=== PATIENT | male | born 1955 | race Caucasian/White ===

== ENCOUNTER 2018-09-17 00:04 | Inpatient (IN) ==
[2018-09-17] MEDS ORDERED: Aspirin 81 MG TAB.CHEW PO ONE (00:41)
--- NOTE | 2018-09-17 00:44 | Emergency Department Note ---
Disposition Clinical Impression: NSTEMI (non-ST elevated myocardial infarction) Chest pain Qualifiers: Chest pain type: unspecified Qualified Code(s): R07.9 - Chest pain, unspecified Disposition: Admitted As Inpatient Condition: Good Time of Disposition: 02:09 Chest Pain HPI - General Chief Complaint: ED Chest Pain Stated Complaint: back pain wth arm pain/risa Time Seen by Provider: 09/17/18 00:21 Source: patient, family Mode of arrival: ambulatory Limitations: no limitations Vital Signs Reviewed: Yes Nursing Notes Reviewed: Yes - History of Present Illness HPI Narrative: 63-year-old male hypertensive, hyperlipidemic with family history of [place] arrives to the emergency department with complaint of back pain radiating to bilateral shoulders as well as some chest pain. Patient states this started roughly 2 weeks ago with stable anginal type patterns where it was worse with exercise. The patient states he would sit down and relax and it would go away. The patient states this progressed the point where now he is experiencing this pain was sitting still. The patient states his last pain was a few hours prior to arrival decided to come into the emergency department. The patient states he was resting comfortably in the couch when it occurred. He denies any associated shortness of breath, nausea, diaphoresis. The patient states he has had a previous cardiac catheter roughly 15 years ago but they were "unable to place a stent". Patient denies any hemoptysis, unilateral leg swelling, history of DVT or PE, recent surgeries or immobilizations. Patient denies any previous mention of aortic aneurysm on previous examination per his previous history. No other complaints noted at this time. The patient is lucid and answering questions verbally. Denies any other complaints. Severity scale (1-10): 0 - Related Data Allergies Allergy/AdvReac Type Severity Reaction Status Date / Time No Known Allergies Allergy Verified 09/17/18 00:19 All systems ED: reviewed and negative except as stated. Constitutional: Denies: fever, chills, weakness ENT ED: Denies: dysphagia Cardiovascular: Reports: chest pain, dyspnea on exertion. Denies: orthopnea, edema, syncope Respiratory: Denies: cough, dyspnea, sputum production Gastrointestinal: Denies: abdominal pain, nausea, vomiting Genitourinary: Denies: urgency, dysuria Musculoskeletal: Reports: back pain. Denies: neck pain, arthralgia, myalgia Integumentary: Denies: rash Neurological: Denies: headache Chest Pain PMH - Past Medical History Medical history: Reports: hyperlipidemia, hypertension, myocardial infarction Psychiatric history: Reports: no psych history Prior Cardiac Testing/Procedures: Cardiac Angiogram - Social History Smoking Status: Never smoker Alcohol use: Reports: none Drug use: Reports: none Physical Exam - General Limitations: no limitations General appearance: alert, in no apparent distress - Head Head exam: atraumatic, normocephalic, normal inspection - Eye Eye exam: Present: normal appearance, PERRL, EOMI - ENT ENT exam: normal exam, normal oropharynx, mucous membranes moist - Neck Neck exam: Present: normal inspection, full ROM, trachea midline - Chest Chest inspection: Present: normal inspection, symmetric chest wall rise - Respiratory Respiratory exam: Present: normal lung sounds bilaterally - Cardiovascular Cardiovascular exam: Present: regular rate, normal rhythm, normal heart sounds - Abdominal Exam Abdominal exam: Present: soft, Non-Tender. Absent: tenderness, distention, guarding, rebound, rigidity - Extremities Exam Extremities exam: Present: normal inspection, full ROM. Absent: tenderness, pedal edema - Neurological Exam Neurological exam: Present: alert, oriented X3 - Skin Skin exam: Present: warm, dry, intact, normal color Course Vital Signs Temperature 98.3 F 09/17/18 00:13 Pulse Rate 64 09/17/18 00:13 Respiratory Rate 16 09/17/18 00:13 Blood Pressure 137/96 09/17/18 00:13 O2 Sat by Pulse Oximetry 97 09/17/18 00:13 Temperature 98.3 F 09/17/18 00:13 Pulse Rate 60 09/17/18 00:49 Respiratory Rate 16 09/17/18 00:33 Blood Pressure 131/92 09/17/18 01:30 O2 Sat by Pulse Oximetry 97 09/17/18 00:52 Oxygen Delivery Oxygen Delivery Room Air Chest Pain - MDM Narrative Medical decision making narrative: Patient's workup in the emergency department demonstrates an elevated troponin consistent with an in STEMI. The patient has no EKG changes. Patient has no active chest pain at this time. We will admit the patient to the hospital for placing on a hep or drip. The patient states that he has had no black or bloody stools. The patient will be admitted to the hospital for further workup. Accepted by Dr. Yañez - Lab Data Lab results reviewed: Yes I reviewed the patient's lab results. Result diagrams: 09/17/18 00:30 09/17/18 00:30 Lab Results 09/17/18 09/17/18 09/17/18 Range/Units 00:30 00:30 00:30 WBC 8.3 (4.3-11.1) K/mcL RBC 4.96 (4.19-5.50) M/mcL Hgb 15.2 (12.9-16.9) g/dL Hct 44.5 (37.5-50.1) % MCV 89.7 (83.0-100.0) fL MCH 30.6 (28.0-33.3) pg MCHC 34.2 (31.6-35.5) g/dL RDW 11.9 (11.5-14.5) % Plt Count 262 (140-400) K/mcL MPV 10.6 (9.4-12.4) fL Immature Gran % 0.4 (0-4) % Seg Neutrophils % 64.9 % Lymphocytes % 24.1 % Monocytes % 7.3 % Eosinophils % 2.5 % Basophils % 0.8 % Neutrophils # 5.4 (1.6-8.9) K/mcL Lymphocytes # 2.0 (0.6-4.6) K/mcL Monocytes # 0.6 (0.0-1.3) K/mcL Eosinophils # 0.2 (0.0-0.6) K/mcL Basophils # 0.1 (0.0-0.2) K/mcL PT 11.0 (9.4-12.1) Seconds INR 1.0 APTT 32.0 (26.0-36.0) Seconds Sodium 139 (136-145) mEq/L Potassium 4.2 (3.5-5.1) mEq/L Chloride 105 (98-107) mEq/L Carbon Dioxide 27 (23-29) mEq/L BUN 20 (8-23) mg/dL Creatinine 1.10 (0.70-1.30) mg/dL Est GFR ( Amer) > 60 (> 60) Est GFR (Non-Af Amer) > 60 (> 60) BUN/Creatinine Ratio 18 (6-26) Glucose 155 H (70-105) mg/dL Calculated Osmolality 294 (280-300) Calcium 9.2 (8.6-10.3) mg/dL Troponin I 0.14 H* (< 0.04) ng/mL - Radiology Data Radiology results reviewed: Yes I reviewed the patient's radiology results. Chest X-Ray 09/17/18 00:41 IMPRESSION: Negative portable chest. D/ / Yemi Harris MD / Yemi Harris MD Interpreting Provider: Yemi Harris MD - EKG Data EKG attestation: Yes I reviewed and interpreted this EKG. EKG results narrative: Heart rate 66 beats for minute. Normal sinus rhythm. No ST elevation or ST depression noted. No acute changes noted.
[2018-09-17 00:52] LABS: Basophils # 0.1 K/mcL (0.0-0.2); Basophils % 0.8 %; Eosinophils # 0.2 K/mcL (0.0-0.6); Eosinophils % 2.5 %; Hematocrit 44.5 % (37.5-50.1); Hemoglobin 15.2 g/dL (12.9-16.9); Immature Granulocytes % 0.4 % (0-4); Lymphocytes % 24.1 %; Mean Corpuscular HGB Conc 34.2 g/dL (31.6-35.5); Mean Corpuscular Hemoglobin 30.6 pg (28.0-33.3); Mean Corpuscular Volume 89.7 fL (83.0-100.0); Mean Platelet Volume 10.6 fL (9.4-12.4); Monocytes # 0.6 K/mcL (0.0-1.3); Monocytes % 7.3 %; Neutrophils # 5.4 K/mcL (1.6-8.9); Platelet Count 262 K/mcL (140-400); Red Blood Count 4.96 M/mcL (4.19-5.50); Red Cell Distribution Width 11.9 % (11.5-14.5); Segmented Neutrophils % 64.9 %
[2018-09-17 01:15] LABS: BUN/Creatinine Ratio 18 (6-26); Blood Urea Nitrogen 20 mg/dL (8-23); Calcium 9.2 mg/dL (8.6-10.3); Carbon Dioxide 27 mEq/L (23-29); Chloride 105 mEq/L (98-107); Glucose 155 mg/dL (70-105); Osmolality,Calculated 294 (280-300); Potassium 4.2 mEq/L (3.5-5.1); Sodium 139 mEq/L (136-145); eGFR For Non-African Americans > 60 (> 60)
[2018-09-17 01:19] LABS: Troponin I 0.14 ng/mL (< 0.04)
[2018-09-17] MEDS ORDERED: *HR* Heparin 5,000 UNIT/ML VIAL IVP PRN ×2 (01:34)
[2018-09-17] MEDS ORDERED: *HR* Heparin 5,000 UNIT/ML VIAL IVP ONE (01:34)
--- NOTE | 2018-09-17 02:12 | Emergency Department Note ---
Disposition Clinical Impression: NSTEMI (non-ST elevated myocardial infarction) Chest pain Qualifiers: Chest pain type: unspecified Qualified Code(s): R07.9 - Chest pain, unspecified Disposition: Admitted As Inpatient Condition: Good General Adult HPI - General Chief complaint: ED Chest Pain Stated complaint: back pain wth arm pain/risa Time Seen by Provider: 09/17/18 00:21 Source: patient, family Mode of arrival: ambulatory Limitations: no limitations Nursing Notes Reviewed: Yes Vital Signs Reviewed: Yes - History of Present Illness Pain Scale: 0 - Related Data Allergies Allergy/AdvReac Type Severity Reaction Status Date / Time No Known Allergies Allergy Verified 09/17/18 00:19 Constitutional: Denies: fever, chills, weakness ENT ED: Denies: dysphagia Cardiovascular: Reports: chest pain, dyspnea on exertion. Denies: orthopnea, edema, syncope Respiratory: Denies: cough, dyspnea, sputum production Gastrointestinal: Denies: abdominal pain, nausea, vomiting Genitourinary: Denies: urgency, dysuria Musculoskeletal: Reports: back pain. Denies: neck pain, arthralgia, myalgia Integumentary: Denies: rash Neurological: Denies: headache Past Medical History - Past Medical History Medical history: Reports: hyperlipidemia, hypertension, myocardial infarction Psychiatric history: Reports: no psych history - Social History Smoking Status: Never smoker Smokeless Tobacco Status: No Alcohol use: Reports: none Drug use: Reports: none Physical Exam - General Limitations: no limitations General appearance: alert, in no apparent distress Course Vital Signs Temperature 98.3 F 09/17/18 00:13 Pulse Rate 64 09/17/18 00:13 Respiratory Rate 16 09/17/18 00:13 Blood Pressure 137/96 09/17/18 00:13 O2 Sat by Pulse Oximetry 97 09/17/18 00:13 Temperature 98.3 F 09/17/18 00:13 Pulse Rate 60 09/17/18 00:49 Respiratory Rate 16 09/17/18 00:33 Blood Pressure 131/92 09/17/18 01:30 O2 Sat by Pulse Oximetry 97 09/17/18 00:52 Oxygen Delivery Oxygen Delivery Room Air Medical Decision Making - Medical Records Medical records reviewed: Yes I reviewed the patient's medical records. - Lab Data Lab results reviewed: Yes I reviewed the patient's lab results. Result diagrams: 09/17/18 00:30 09/17/18 00:30 Lab Results 09/17/18 09/17/18 09/17/18 Range/Units 00:30 00:30 00:30 WBC 8.3 (4.3-11.1) K/mcL RBC 4.96 (4.19-5.50) M/mcL Hgb 15.2 (12.9-16.9) g/dL Hct 44.5 (37.5-50.1) % MCV 89.7 (83.0-100.0) fL MCH 30.6 (28.0-33.3) pg MCHC 34.2 (31.6-35.5) g/dL RDW 11.9 (11.5-14.5) % Plt Count 262 (140-400) K/mcL MPV 10.6 (9.4-12.4) fL Immature Gran % 0.4 (0-4) % Seg Neutrophils % 64.9 % Lymphocytes % 24.1 % Monocytes % 7.3 % Eosinophils % 2.5 % Basophils % 0.8 % Neutrophils # 5.4 (1.6-8.9) K/mcL Lymphocytes # 2.0 (0.6-4.6) K/mcL Monocytes # 0.6 (0.0-1.3) K/mcL Eosinophils # 0.2 (0.0-0.6) K/mcL Basophils # 0.1 (0.0-0.2) K/mcL PT 11.0 (9.4-12.1) Seconds INR 1.0 APTT 32.0 (26.0-36.0) Seconds Sodium 139 (136-145) mEq/L Potassium 4.2 (3.5-5.1) mEq/L Chloride 105 (98-107) mEq/L Carbon Dioxide 27 (23-29) mEq/L BUN 20 (8-23) mg/dL Creatinine 1.10 (0.70-1.30) mg/dL Est GFR ( Amer) > 60 (> 60) Est GFR (Non-Af Amer) > 60 (> 60) BUN/Creatinine Ratio 18 (6-26) Glucose 155 H (70-105) mg/dL Calculated Osmolality 294 (280-300) Calcium 9.2 (8.6-10.3) mg/dL Troponin I 0.14 H* (< 0.04) ng/mL - Radiology Data Radiology results reviewed: Yes I reviewed the patient's radiology results. Chest X-Ray 09/17/18 00:41 IMPRESSION: Negative portable chest. D/ / Yemi Harris MD / Yemi Harris MD Interpreting Provider: Yemi Harris MD - EKG Data EKG #1 EKG attestation: Yes I reviewed and interpreted this EKG. EKG results narrative: EKG shows a normal sinus rhythm with ventricular rate of 66. LDH. No acute ST segment elevation or depression. No arrhythmia or ectopy. Critical Care Time Critical Care Time: Yes Total Critical Care Time: 35 Attestation: Critical care performed: Time is exclusive of separately billable procedures. Time includes: direct patient care, patient reassessment, coordination of patient care, interpretation of data (laboratory data, radiology data, and respiratory data), review of [facility]'s medical records, medical consultation and documentation of patient care. Procedures included in critical care time: Procedures excluded from critical care time: Attestation Statement - Attestation Attestation: I, Juanpablo Mcknight MD, personally evaluated this patient and discussed their management with the resident physician. I reviewed the resident's note and agree with the documented findings, medical decision making, and plan of care. 63-year-old male presents to the emergency department with a complaint of having pain in the mid and upper back which radiates to both shoulders and down both arms. The pains started 6 days ago while he was doing some heavy exercise. Since then he has had intermittent similar pains associated with exertion. Last evening he had an episode of similar pain at rest and then tonight had another episode of pain at rest which seemed worse than the previous episodes. He denies any shortness of breath with the episodes. No palpitations. No diaphoresis. No nausea or vomiting. Denies any pain or discomfort at present. He states the pain does not radiate through to the anterior chest it is just in his back between his shoulders. On examination patient is a well-developed well-nourished well-appearing male in no acute distress. He is alert and oriented 3. There is no cyanosis or diaphoresis. Chest is nontender to palpation. Breath sounds are clear and equal bilaterally. Heart regular rate and rhythm. Abdomen soft and nontender with normal bowel sounds. EKG shows normal sinus rhythm with a ventricular rate is 66. No acute ischemic changes. Chest x-ray negative. Labs reviewed. Troponin 0.14. Patient received aspirin and was started on heparin drip. The hospitalist, Dr. Clark, was consulted and accepted admission of the claude ent.
[2018-09-17 02:13] LABS: Hemoglobin 15.3 g/dL (12.9-16.9); Mean Corpuscular Hemoglobin 30.5 pg (28.0-33.3); Mean Corpuscular Volume 89.8 fL (83.0-100.0); Mean Platelet Volume 10.3 fL (9.4-12.4); Platelet Count 267 K/mcL (140-400); Red Blood Count 5.01 M/mcL (4.19-5.50); Red Cell Distribution Width 11.9 % (11.5-14.5)
[2018-09-17 02:21] LABS: Heparin anti-factor XA UFH 0.03 IU/mL (0.30-0.70); Prothrombin Time 11.2 Seconds (9.4-12.1)
[2018-09-17] MEDS: Heparin 25,000 UNIT/500 ML D5W 25,000 UNIT/500 ML BAG IVC SCH (02:50)
[2018-09-17] MEDS ORDERED: Nitroglycerin 0.4 MG TAB.SUBL SL PRN (03:05)
[2018-09-17] MEDS ORDERED: Naloxone 0.4 MG/ML INJ IVP PRN (03:05)
--- NOTE | 2018-09-17 03:14 | Internal Med History&Physical ---
Date of Encounter: 09/17/18 Time of Encounter: 03:14 Internal Medicine - H&P: HPI Chief complaint: Back pain History of present illness: Mr. Myers is a 63 year old male T with a past medical history of hypertension, hyperlipidemia and history of [place] who presents to the ED with a chief complaint of bilateral shoulder pain. Patient states that 2 weeks ago while exercising he developed what he described as pain radiating across his back near the shoulders; he described the pain as dull and aching. Pain resolved with rest at the time. This happened on 2 occasions while exercising. Patient states he exercises 6 times a week for approximately an hour and has been doing so for years. He states he does some form of Jazzercise. The patient states this progressed the point where now he is experiencing this pain while sitting still. The patient states his last pain was a few hours prior to arrival and therefore decided to come into the emergency department for further evaluation. He patient states he has had a previous cardiac catheter roughly 15 years ago but they were "unable to place a stent". He states that at the time he was having chest pain with radiation to his left arm, very different from his current presentation. Patient has never smoked; does not drink but has a strong family history of heart disease in both his mother and father. On initial assessment patient was afebrile and hemodynamically stable. Initial troponin of 0.14. Chest x-ray was unremarkable and showed no evidence of widened mediastinum. Patient was started on a heparin drip and given loading dose of aspirin. Past Med Surg Social Fam HX - Past Medical History Medical history: hyperlipidemia, hypertension, myocardial infarction Psychiatric history: no psych history - Past Surgical History Additional surgical history: CARDIAC CATH-NO STENTS - Social History Smoking Status: Never smoker Smokeless Tobacco Status: No Alcohol use: none Drug use: none Internal Medicine - H&P: Meds Allergy/AdvReac Type Severity Reaction Status Date / Time No Known Allergies Allergy Verified 09/17/18 00:19 All Systems PM: A 10-system review of systems was performed and is negative for pertinent findings except as documented above in the HPI. - Constitutional Constitutional: no chills, no fever(s), no night sweats - EENT Eyes: no change in vision, no discharge, no pain, no photophobia Ears: no ear discharge, no ear pain, no tinnitus Nose, mouth and throat: no dysphagia, no nasal discharge, no neck pain, no sore throat - Cardiovascular Cardiovascular ROS IM: no chest pain, no diaphoresis, no dyspnea, no lightheadedness, no palpitations, no syncope - Respiratory Respiratory: no cough, no dyspnea, no wheezing, no excessive phlegm production - Gastrointestinal Gastrointestinal: no abdominal pain, no diarrhea, no hematemesis, no hematochezia, no melena, no nausea, no vomiting - Musculoskeletal Musculoskeletal ROS IM: no numbness, no tingling - Integumentary Integumentary IM: no rash, no unusual bruising - Neurological Neurological ROS: no confusion, no convulsions, no focal weakness, no numbness, no tingling, no tremor(s) - Hematologic/Lymphatic Hematologic/Lymphatic: no easy bruising - Constitutional Vitals: Temp Pulse Resp BP Pulse Ox 98.3 F 60 16 132/94 96 09/17/18 00:13 09/17/18 02:56 09/17/18 02:56 09/17/18 02:56 09/17/18 02:56 Exam: General: Alert and oriented 3 lying in bed in no acute distress Skin:Normal color, no rash, no lesions. HEENT:EOM, pupils equal, round and reactive. Cardiovascular:Normal S1 & S2, no rubs, murmurs or gallops. No JVD. Pulse regular. Lungs:Normal breath sounds, no wheezes or crackles. Abdomen:Soft, non-tender, no rigidity. Extremities:No deformity, no edema or tenderness, no joint swelling or clubbing. Neurological:Normal cognition and motor skills. Pulses:Carotid and radial pulses normal +2. Rest of the physical exam is non contributory Internal Med - H&P Results - Labs CBC & Chem 7: 09/17/18 02:03 09/17/18 00:30 Labs: Short CBC 09/17/18 09/17/18 Range/Units 00:30 02:03 WBC 8.3 9.6 (4.3-11.1) K/mcL Hgb 15.2 15.3 (12.9-16.9) g/dL Hct 44.5 45.0 (37.5-50.1) % Plt Count 262 267 (140-400) K/mcL Neutrophils # 5.4 (1.6-8.9) K/mcL BMP 09/17/18 00:30 Sodium 139 Potassium 4.2 Chloride 105 Carbon Dioxide 27 BUN 20 Creatinine 1.10 Glucose 155 H Calcium 9.2 Cardiac Enzymes 09/17/18 Range/Units 00:30 Troponin I 0.14 H* (< 0.04) ng/mL - Impressions ITS Impressions Chest X-Ray 09/17/18 00:41 IMPRESSION: Negative portable chest. D/ / Yemi Harris MD / Yemi Harris MD Interpreting Provider: Yemi Harris MD - Assessment and plan (1) NSTEMI (non-ST elevated myocardial infarction) Current Visit: Yes Status: Acute Assessment and plan: 63-year-old male with a past medical history significant for [place] presents with atypical chest pain described as pain radiating across the back shoulders initially aggravated with exertion, specifically exercise, and relieved with rest; now occurring at rest. Initial EKG was normal but was found to have an elevated troponin of 0.14. Low suspicion for aortic dissection given description and no evidence of widened mediastinum on chest x-ray. Patient received loading dose of aspirin and was started on a heparin drip. No complaints of chest or back pain at this time. -Trend troponin -Telemetry -Echocardiogram -Cardiology consultation (2) Hypertension Current Visit: Yes Status: Acute Assessment and plan: Blood pressure stable. We will monitor Continue with home antihypertensives. Qualifiers: Hypertension type: unspecified Qualified Code(s): I10 - Essential (primary) hypertension (3) Hyperlipidemia Current Visit: Yes Status: Acute Assessment and plan: Continue patient's home statin Qualifiers: Qualified Code(s): E78.5 - Hyperlipidemia, unspecified (4) DVT prophylaxis Current Visit: Yes Status: Acute Assessment and plan: Patient on heparin drip - Time Spent With Patient Total time spent is greater than 50% in coordination of care (as documented) at patient's floor/unit and/or counseling patient:
[2018-09-17] MEDS ORDERED: *HR* OxyCODONE Immed Rel 5 MG TABLET PO PRN (03:30)
[2018-09-17] MEDS: 0.9 % Sodium Chloride 1,000 ML IVC SCH ×2 (05:33→18:05)
--- NOTE | 2018-09-17 08:47 | Cardiology Consult Note ---
Date of Encounter: 09/17/18 Time of Encounter: 08:42 Assessment and Plan (1) NSTEMI (non-ST elevated myocardial infarction) Current Visit: Yes Status: Acute Troponin 0.14, 0.19. Pain in shoulder blades and radiating down both arms occurring with exertion over the past couple weeks, progressed to occurring at rest. On heparin gtt. Currently pain free. Start ASA, Statin, BB. ECG SR with LVH. Pt reports WA and LHC ~15 years. He states blockage was noted without stent placement. TTE to evaluate structure and function. Recommend LHC. R/B/A discussed. Pt agrees. LHC today. (2) CAD (coronary artery disease) Current Visit: Yes Status: Acute Reports WA and LHC ~15 years ago. Reportedly blockage was found, no intervention. Start ASA, Statin, BB. LHC as above for NSTEMI. Qualifiers: Coronary Disease-Associated Artery/Lesion type: [place] artery [place] vs. transplanted heart: [place] heart Associated angina: with unstable angina Qualified Code(s): I25.110 - Atherosclerotic heart disease of [place] coronary artery with unstable angina pectoris Discussion w patient/family: The assessment and plan as outlined above was discussed with the patient and/or family members who expressed understanding and agreement. All questions were answered. Thank you for involving us in the care of your patient. Please call with any questions. I will discuss all the above with Dr. Maddox and make changes as necessary. History of Present Illness Consult date: 09/17/18 Consult reason: NSTEMI Chief complaint: back pain History of present illness: Mr. Myers is a 63 year old male with PMH of HTN, HLD, and history of WA who presents to the ED with a chief complaint of bilateral shoulder pain. Pt states that 2 weeks ago while exercising he developed pain radiating across his upper back/shoulders and radiated down both arms, resolved with rest. This happened on 2 occasions while exercising. Patient states he exercises 6 times a week for approximately an hour and has been doing so for years. The past 2 nights he developed pain at rest. Pt reports he had a LHC ~15 years ago with blockage but they were "unable to place a stent". Troponins 0.14, 0.19. Cardiology consulted for further recs. Past Med Surg Social Fam HX - Past Medical History Medical history: coronary artery disease, hyperlipidemia, hypertension, myocardial infarction Psychiatric history: no psych history - Past Surgical History Additional surgical history: CARDIAC CATH-NO STENTS - Social History Smoking Status: Never smoker Smokeless Tobacco Status: No Alcohol use: none Drug use: none Medications and Allergies Allergy/AdvReac Type Severity Reaction Status Date / Time No Known Allergies Allergy Verified 09/17/18 00:19 All Systems Review: The remainder of the systems were reviewed and are negative - Cardiovascular Cardiovascular: as per HPI, radiating jaw, neck or arm pain Physical Examination Vital Signs, Last 4 Hours Temp Pulse Resp BP Pulse Ox 09/17/18 06:56 97.8 F 54 18 155/95 97 Vital Signs Temp Pulse Resp BP Pulse Ox 09/17/18 06:56 97.8 F 54 18 155/95 97 09/17/18 03:59 98.3 F 67 16 152/91 97 09/17/18 02:56 60 16 132/94 96 09/17/18 01:30 131/92 09/17/18 01:15 136/89 09/17/18 01:00 136/93 09/17/18 00:52 97 09/17/18 00:49 60 143/99 09/17/18 00:48 59 130/88 09/17/18 00:33 71 16 141/93 98 09/17/18 00:13 98.3 F 64 16 137/96 97 Intake and Output 09/16/18 09/17/18 09/17/18 23:59 07:59 15:59 Output Total 250 / 250 Balance -250 / -250 Output: Urine 250 / 250 Other: Weight 90.5 kg Patient Weight 09/17/18 23:59 Weight 90.5 kg General: Conversant, No Apparent Distress HEENT: Atraumatic, Normocephaly, Mucus Membranes Moist Neck: No JVD, Normal carotid pulses Cardiac: Reg Rate and Rhythm, Normal S1 and S2, No Murmur Lungs: Normal Breath Sounds, No Wheeze, Rales, Rhonchi Neuro: Alert and responsive, No focal deficits noted Abdomen: Soft, Non-Tender Skin: No rashes noted on visualized skin Musculoskeletal: No Chest Wall Tenderness Extremities: No Clubbing, No Cyanosis, No Edema, Normal Pulses Results 09/17/18 02:03 09/17/18 00:30 Lab Results 09/17/18 09/17/1819 00:30 00:30 00:30 WBC 8.3 Hgb 15.2 Hct 44.5 Plt Count 262 INR 1.0 APTT 32.0 Sodium 139 Potassium 4.2 Chloride 105 Carbon Dioxide 27 BUN 20 Creatinine 1.10 Glucose 155 H Calcium 9.2 Troponin I 0.14 H* 09/17/18 09/17/18 09/17/18 02:03 02:03 02:03 WBC 9.6 Hgb 15.3 Hct 45.0 Plt Count 267 INR 1.0 APTT 29.8 Sodium Potassium Chloride Carbon Dioxide BUN Creatinine Glucose Calcium Troponin I 09/17/18 06:55 WBC Hgb Hct Plt Count INR APTT Sodium Potassium Chloride Carbon Dioxide BUN Creatinine Glucose Calcium Troponin I 0.19 H* Impressions Chest X-Ray 09/17/18 00:41 IMPRESSION: Negative portable chest. D/ / Yemi Harris MD / Yemi Harris MD Interpreting Provider: Yemi Harris MD Active Medications Heparin Sodium (Porcine) (Heparin) 4,000 unit IVP Q6HR PRN PRN Reason: SEE COMMENTS Stop: 03/19/19 01:35 Heparin Sodium (Porcine) (Heparin) 2,000 unit IVP Q6H PRN PRN Reason: SEE COMMENTS Stop: 03/19/19 01:35 Heparin Sodium/Dextrose (Heparin 25,000 Unit/500 Ml D5w) 25,000 unit in 500 mls @ 20.051 mls/hr IVC .Q24H [facility]; Protocol Stop: 03/19/19 01:46 Last Admin: 09/17/18 02:50 Dose: 11.5 unit/kg/hr, 20.051 mls/hr Sodium Chloride (0.9 % Sodium Chloride) 1,000 mls @ 75 mls/hr IVC .[id number] [facility] Stop: 09/18/18 05:54 Last Admin: 09/17/18 05:33 Dose: 75 mls/hr Naloxone HCl (Narcan) 0.4 mg IVP Q2MIN PRN PRN Reason: SEE COMMENTS Stop: 03/19/19 03:06 Nitroglycerin (Nitroglycerin) 0.4 mg SL Q5MIN PRN PRN Reason: Chest Pain Stop: 03/19/19 03:06 Oxycodone HCl (Roxicodone) 5 mg PO Q4H PRN PRN Reason: SEVERE PAIN Stop: 03/19/19 03:31 - EKG Interpretation EKG results cardiology: personally reviewed (SR, LVH) Consult Discharge Plan - Plan Referrals: Ajith,Hernan Matthews MD [Primary Care Provider] -
[2018-09-17] MEDS ORDERED: Nitroglycerin 1,000 MCG/10 ML VIAL IV ONE (15:04)
[2018-09-17] MEDS ORDERED: Verapamil 5 MG/2 ML VIAL ONE (15:04)
[2018-09-17] MEDS ORDERED: ISOVUE-370 200 ML INFUS..BTL ONE (15:04)
[2018-09-17] MEDS ORDERED: 0.9 % Sodium Chloride 1,000 ML ONE (15:04)
[2018-09-17] MEDS ORDERED: Heparin 1,000 UNITS/500 mL 500 ML ONE (15:04)
[2018-09-17] MEDS ORDERED: *HR* Heparin 10,000 UNIT/10 ML VIAL ONE (15:04)
--- NOTE | 2018-09-17 15:29 | Electrocardiograph Report ---
[place] [id number] Test Date: 2018-09-17 Pat Name: Romaine Myers Department: [id number] Room: 3B Gender: M [employer]: : 1955 Requested By: Morro Elena Order Number: [id number] Reading MD: Barry Nelson Measurements Intervals [place] Rate: 66 P: 41 MI: 139 QRS: 6 QRSD: 106 T: 46 QT: 401 QTc: 421 Interpretive Statements Sinus rhythm Left ventricular hypertrophy Electronically Signed On 09-17-2018 15:27:32 EST by Barry Nelson
[2018-09-17] MEDS ORDERED: *HR* Midazolam HCl 2 MG/2 ML VIAL ONE (15:59)
[2018-09-17] MEDS ORDERED: *HR* FentaNYL (PF) 100 MCG/2 ML VIAL ONE (15:59)
--- NOTE | 2018-09-17 16:05 | Pre-Sedation Evaluation ---
Pre-sedation evaluation - Pre-sedation checklist Date of procedure: 09/17/18 Procedure: [facility] Recent Vitals: Last Vital Signs Temp 98.1 F 09/17/18 11:17 Pulse 60 09/17/18 11:17 Resp 18 09/17/18 11:17 BP 130/83 09/17/18 11:17 Pulse Ox 95 09/17/18 11:17 H&P (including ROS) documented in medical record: Yes Previous reaction to sedatives/anesthetics: No Dietary Status: NPO after Midnight Airway Assessment: Patient can open mouth completely, TMJ function normal ASA Classification *see protocol: CLASS II-Mild systemic disease Plan of Care: Pt appropriate candidate for procedure/moderate/conscious sedation, Risks/benefits of procedure/sedation discussed w/ patient/family Cardiac Registry (Cardio Only) - Functional Capacity Functional Capacity: >=4 METS with symptoms - Clincal Frailty Scale Clinical Frailty Scale: Managing Well
[2018-09-17] MEDS ORDERED: Tirofiban 12.5 MG/250ML 0 MG/0 ML BAG ONE (16:25)
--- NOTE | 2018-09-17 16:54 | Invasive Diagnostic Lab Proc ---
Name: Romaine Myers Date of Study: 09/17/2018 Date: 1955 Ht: 72.0in Medical Record#: [id number] Age: 63 Wt: 198.42lb Gender: Male BSA: 2.12 Order #: [id number] BMI: 26.87 Physicians Procedure Physician: Zeke Hernandez MD, [facility] Referring MD: Referring MD: Staff Name Position Time In Ghazala Khanna RT (R) Monitor 04:11 PM Hailey Shearer RN Branch Credit Counselor 04:11 PM Dylan Curtis RT (R) Scrub 04:11 PM Procedures Performed Procedure L HRT ARTERY/VENTRICLE ANGIO Pre-Procedure Checklist Informed consent is complete signed and on chart. H&P is on chart. ID band is on and ID verified with patient. Patient NPO for procedure The procedure was described for the patient and questions were answered. Blood Pressure: 141/89 ECG is on chart. Rhythm: NSR Plan of Care Patient will tolerate the procedure without complications. Adequate level of comfort will be maintained. Hemodynamics will remain stable Patient will recover from procedure without complications. Respiratory function will be maintained. Cardiac rhythm will remain stable. Patient temperature will be maintained. Patient and/or family have verbalized understanding of the procedure. Patient Education Chief Complaint/Reason for Test: Cardiac Cath Developmental Category: Adult (18-64 years) Developmentally Appropriate for Age: Yes Learning Barriers: None Education Needs: Procedure Education Method: Verbal Information Taught: Cardiac Cath Educational Evaluation: Able to repeat information Intravenous Access Time IV Size Location DC'd Fluid/Drip Rate Units RN 01:00 AM 20g 1 1/4" Patent On Arrival Rt Antecubital 0.9NaCl 25 ml/hr Allergies No Known Allergies Vital Signs Time BP (mmHg) HR (bpm) O2 Sat. RR (bpm) LOC 04:12 PM 141 / 89 67 93 % 16 4 = Oriented but drowsy 04:12 PM / % 4 = Oriented but drowsy 04:10 PM 141 / 89 69 99 % 15 04:15 PM 129 / 89 69 92 % 37 04:20 PM 104 / 66 66 93 % 26 04:25 PM 104 / 64 62 93 % 14 04:30 PM 107 / 66 64 94 % 24 04:27 PM / % 4 = Oriented but drowsy Procedural Medications Time Medication Dose Units Method Given By 04:12 PM Oxygen 2 L/min nasal cannula Hailey Shearer RN 04:12 PM Versed 2 mg Intravenous Hailey Shearer RN 04:12 PM Fentanyl 50 mcg Intravenous Hailey Shearer RN 04:18 PM Lidocaine 2% 0.5 ml Subcutaneous Zeke Hernandez MD, [facility] 04:19 PM Heparin 2000 units Nitroglycerin 200 mcg Verapamil 2.5 mg Intraarterial Zeke Hernandez MD, [facility] ASA Classification: CLASS II- Mild systemic disease (i.e. well-controlled diabetes, hypertension, asthma, cigarette smoking) Kyung Score Preprocedure Postprocedure Activity 2- Moves 4 extremities sustained head lift Activity 2- Moves 4 extremities sustained head lift Circulation 2- SBP +/= 20 points of pre-anesthetic level Circulation 2- SBP +/= 20 points of pre-anesthetic level Consciousness 2- Awake and alert oriented x 3 Consciousness 2- Awake and alert oriented x 3 O2 Saturation 2- Able to maintain O2 satruation of 92% on room air O2 Saturation 2- Able to maintain O2 satruation of 92% on room air Respiratory 2- Able to deep breathe and cough well Respiratory 2- Able to deep breathe and cough well Total Score 10 Total Score 10 Contrast Agent: Isovue Diagnostic Contrast: 66 ml Total Contrast: 66 ml Fluoro Dose: 2725 mGy Procedure Log Time Note Enter By 04:09 PM Case Start 04:09 PM Vitals capture started with the following parameters, Patient=Adult, Interval=5 min, Initial Dktjjjjq=792 mmHg, Deflation Rate=5 mmHg, Cuff placed on Right Arm 04:10 PM HR=69 bpm, BKCA=400/89 mmhg, SpO2=99.0 %, Resp=15 B/min, EtCO2=37 mmHg 04:10 PM Recorded ECG: HR=64 Condition=Condition 1 04:11 PM Pt arrived to [facility] [employer] 2 at 16:11 [email or web address] 04:11 PM Ghazala Khanna RT (R) Position: Monitor [facility]: [email or web address] 04[facility] PM Hailey Shearer RN Position: Branch Credit Counselor Time in: 16:11 [email or web address] 04:11 PM Dylan Curtis RT (R) Position: Scrub Time in: 16:11 [email or web address] 04:11 PM Patient charges- Angio tray pack, Navilyst 3mm J, Pulse Oximetry and ACIST tubing and transducer [email or web address] 04:11 PM Case Delayed No [email or web address] 04:11 PM Hair removed from procedure site in holding area using clippers. Right wrist prepped with Chloraprep by Ghazala Khanna (R), then patient was draped. Skin intact. [email or web address] 04:12 PM Hair removed from procedure site in holding area using clippers. Right groin prepped with Chloraprep by Ghazala Khanna (R), then patient was draped. Skin intact. [email or web address] 04:12 PM Physician arrived 16:12 [email or web address] 04:12 PM Meet and jody completed [email or web address] 04:12 PM Sign in performed according to hospital policy. Informed consent was obtained. [email or web address] 04:12 PM ASA Class CLASS II- Mild systemic disease (i.e. well-controlled diabetes, hypertension, asthma, cigarette smoking) [email or web address] 04:12 PM Procedure start 16:12 [email or web address] 04:12 PM Time: 16:12 Oxygen on at 2 L/min per nasal cannula by Hailey Shearer RN [email or web address] 04:12 PM Time: 16:12 Versed 2 mg Intravenous Given by Hailey Shearer RN [email or web address] 04:12 PM Time: 16:12 Fentanyl 50 mcg Intravenous Given by Hailey Shearer RN [email or web address] 04:12 PM Time: 16:12 Patient comfortable and pain free: Yes [email or web address] 04:12 PM Time: 16:12LOC: 4 = Oriented but drowsy [email or web address] 04:13 PM Pressure channel 1 zeroed. 04:15 PM HR=69 bpm, KUQX=277/89 mmhg, SpO2=92.0 %, Resp=37 B/min, EtCO2=36 mmHg, Comment=NSR 04:16 PM Pressure channel 1 zeroed. 04:18 PM Time out was performed according to hospital policy. Conscious sedation and anesthesia was achieved (see medication log with in this report above) [email or web address] 04:18 PM Time: 16:18 0.5 ml Lidocaine 2% to right radial Subcutaneous Given by Zeke Hernandez MD, [facility] [email or web address] 04:19 PM Access obtained by percutaneous puncture. 6Fr 10cm Terumo Glidesheath sheath placed in right Radial artery. [id number] [email or web address] 04:19 PM Time: 16:19 Patient given 2,000 units Heparin, 200 mcg Nitroglycerin, and 2.5 mg Verapamil Intraarterial by Zeke Hernandez MD, [facility]. This is given to reduce risk of vessel spasm and thrombosis. [email or web address] 04:19 PM 0.035 260cm Navilyst 3mmJ wire [id number] [email or web address] 04:19 PM 5Fr TIG catheter inserted over the wire [facility] [email or web address] 04:19 PM Pressure channel 1 zeroed. 04:20 PM HR=66 bpm, CRAI=224/66 mmhg, SpO2=93.0 %, Resp=26 B/min, EtCO2=38 mmHg, Comment=NSR 04:20 PM Recorded Pressure: Ao, HR=72, Condition=Condition 1 (Aorta) Ao 100/80/91 04:20 PM LCA angiography performed in multiple views. [email or web address] 04:21 PM Recorded Pressure: Ao, HR=68, Condition=Condition 1 (Aorta) Ao 97/81/89 04:22 PM Recorded Pressure: LV, HR=99, Condition=Condition 1 (Left Ventricle) LV 74/21/28 04:22 PM Recorded Pressure: LV, Ao, HR=71, Condition=Condition 1 (Left Ventricle) LV 89/11/17, (Aorta) Ao 104/51/84 04:22 PM RCA angiography performed in multiple views. [email or web address] 04:24 PM Catheter removed [email or web address] 04:24 PM 5Fr 3DRC catheter inserted over the wire [id number] [email or web address] 04:25 PM HR=62 bpm, PSYK=704/64 mmhg, SpO2=93.0 %, Resp=14 B/min, Comment=NSR 04:25 PM RCA angiography performed in multiple views. [email or web address] 04:26 PM Recorded Pressure: Ao, HR=63, Condition=Condition 1 (Aorta) Ao 96/67/83 04:27 PM Time: 16:12 Patient comfortable and pain free: Yes [email or web address] 04:27 PM Time: 16:12LOC: 4 = Oriented but drowsy [email or web address] 04:28 PM Catheter removed [email or web address] 04:28 PM 5Fr FL 3.5 catheter inserted over the wire [id number] [email or web address] 04:29 PM Catheter removed [email or web address] 04:29 PM Wire removed [email or web address] 04:30 PM HR=64 bpm, FGKW=332/66 mmhg, SpO2=94.0 %, Resp=24 B/min, Comment=NSR 04:30 PM Procedure completed at 16:30 09/17/2018 [email or web address] 04:31 PM Coronary Dominance: right [email or web address] 04:31 PM Did you address RENETTA flow and Dominance? Yes [email or web address] 04:31 PM Sign out completed: Radiation Dose 299.52 mGy, 2725.11 cGy/cm2 Fluoro Time: 2.6 Isovue 370 - 200ml contrast 66 ml given by Zeke Hernandez MD, [facility]. Complications: None. The patient was discharged out of the [facility] in stable condition. Cardiac Rehab Consult needed: YesConfirmed administered medications: Yes [email or web address] 04:31 PM Isovue 370 - 200ml,1 Bottle(s) used. [email or web address] 04:31 PM Arterial sheath pulled, Vasc Band closure device used and was Successful S/N. [email or web address] 04:32 PM 12 ml air in Vasc Band. [email or web address] 04:32 PM Estimated Blood Loss: minimal [email or web address] 04:32 PM Post ECG NSR [email or web address] 04:32 PM Post Blood Pressure 107/66 [email or web address] 04:32 PM 16:32 Post Pulses Rt Radial 1+ [email or web address] 04:32 PM Information taught Cardiac Cath [email or web address] 04:32 PM Education needs Procedure, Disease Process, and Plan of Care [email or web address] 04:32 PM Learning barriers :None [email or web address] 04:32 PM Education Methods Verbal [email or web address] 04:32 PM Education evaluation Able to repeat information [email or web address] 04:32 PM Site status No bleeding/hematoma - Rt Wrist as reported by Dylan Curtis RT (R) at 16:32 [email or web address] 04:32 PM Complications: None [email or web address] 04:33 PM Delay to floor No [email or web address] 04:33 PM Family placed in consult room. [email or web address] 04:34 PM Conversation between Interventionalist and CT Surgeon. [email or web address] 04:42 PM Time: 16:27LOC: 4 = Oriented but drowsy [email or web address] 04:42 PM Time: 16:27 Patient comfortable and pain free: Yes [email or web address] 04:43 PM Report given to Alana BALL Pt taken to 3B Room #52. 16:43 [email or web address] 04:43 PM Delay to floor No [email or web address] 04:43 PM Patient out of room: 16:43 [email or web address] Complications Complication None None Hemodynamics Pressures Site Systolic/A Wave Diastolic/V Wave Mean AO 100 80 91 AO 97 81 89 LV 74 21 28 LV 89 11 17 AO 104 51 84 AO 96 67 83 Post Procedure Information Blood Pressure: 107/66 mmHg Rhythm: NSR Post procedural instructions were given Surgery consult for CABG Closure Device Time Device Success/Fail 09/17/2018 4:35:00 PM Mechanical Compression yes Site Checks Time Location Status Staff Sheath In? Note 04:32 PM Rt Wrist No bleeding/hematoma Dylan Curtis RT (R) Pulses Time Site Pre-Procedure Post-Procedure Note Bilateral DP & PT 2+ 2+ Bilateral radial 2+ 4:32:00 PM Rt Radial 1+ Updated by Ghazala Khanna, RT(R) on 09/17/2018 4:44:52 PM electronically signed on 09/17/2018 4:45:30 PM with status of Final
[2018-09-18 05:23] LABS: Basophils # 0.1 K/mcL (0.0-0.2); Basophils % 0.8 %; Eosinophils # 0.2 K/mcL (0.0-0.6); Eosinophils % 2.7 %; Hematocrit 42.2 % (37.5-50.1); Hemoglobin 14.9 g/dL (12.9-16.9); Immature Granulocytes % 0.3 % (0-4); Lymphocytes # 1.5 K/mcL (0.6-4.6); Lymphocytes % 18.7 %; Mean Corpuscular HGB Conc 35.3 g/dL (31.6-35.5); Mean Corpuscular Hemoglobin 30.7 pg (28.0-33.3); Mean Platelet Volume 10.3 fL (9.4-12.4); Monocytes # 0.5 K/mcL (0.0-1.3); Monocytes % 6.8 %; Neutrophils # 5.5 K/mcL (1.6-8.9); Platelet Count 244 K/mcL (140-400); Red Blood Count 4.85 M/mcL (4.19-5.50); Segmented Neutrophils % 70.7 %
[2018-09-18 05:42] LABS: BUN/Creatinine Ratio 14 (6-26); Blood Urea Nitrogen 12 mg/dL (8-23); Calcium 8.8 mg/dL (8.6-10.3); Carbon Dioxide 27 mEq/L (23-29); Chloride 108 mEq/L (98-107); Glucose 147 mg/dL (70-105); Osmolality,Calculated 288 (280-300); Potassium 4.3 mEq/L (3.5-5.1); Sodium 138 mEq/L (136-145); eGFR For Non-African Americans > 60 (> 60)
--- NOTE | 2018-09-18 09:15 | Internal Med Progress Note ---
Hospitalist Progress Note - Encounter Date of Encounter: 09/18/18 Time of Encounter: 09:10 - Subjective Interval History: Pt resting in the room with family. He is chest pain free at this time. Had LHC yesterday and results are pending but reportedly abnormal. He has no sob, syncope, or palpitation. - Exam Vitals: Temp Pulse Resp BP Pulse Ox 98.2 F 70 18 133/81 94 09/18/18 08:29 09/18/18 08:29 09/18/18 08:29 09/18/18 08:29 09/18/18 08:29 Exam: General: Alert and oriented 3 lying in bed in no acute distress Skin:Normal color, no rash, no lesions. HEENT:EOM, pupils equal, round and reactive. Cardiovascular:Normal S1 & S2, no rubs, murmurs or gallops. No JVD. Pulse regular. Lungs:Normal breath sounds, no wheezes or crackles. Abdomen:Soft, non-tender, no rigidity. Extremities:No deformity, no edema or tenderness, no joint swelling or clubbing. Neurological:Normal cognition and motor skills. Pulses:Carotid and radial pulses normal +2. Rest of the physical exam is non contributory - Assessment and Plan (1) NSTEMI (non-ST elevated myocardial infarction) Current Visit: Yes Status: Acute Assessment and Plan: 09/17/2018 63-year-old male with a past medical history significant for [place] presents with atypical chest pain described as pain radiating across the back shoulders initially aggravated with exertion, specifically exercise, and relieved with rest; now occurring at rest. Initial EKG was normal but was found to have an elevated troponin of 0.14. Low suspicion for aortic dissection given description and no evidence of widened mediastinum on chest x-ray. Patient received loading dose of aspirin and was started on a heparin drip. No complaints of chest or back pain at this time. -Trend troponin -Telemetry -Echocardiogram -Cardiology consultation. 09/18/2018 reported occluded coronary arteries on [facility]. possible CABG discussed with pt and family by cardiology. continue Heparin gtt for now. continue asa and BB. ECHO 09/17 showed: LVEF 55%. Basal sigmoid septum. Mild left ventricular diastolic dysfunction. Normal right ventricular structure and function. Mild-moderate mitral regurgitation. Trace tricuspid regurgitation. No evidence of pulmonary hypertension. (2) Hypertension Current Visit: Yes Status: Acute Assessment and Plan: Blood pressure stable. We will monitor Continue with home antihypertensives. (3) Hyperlipidemia Current Visit: Yes Status: Acute Assessment and Plan: Continue patient's home statin (4) DVT prophylaxis Current Visit: Yes Status: Acute Assessment and Plan: Patient on heparin drip - Time Spent with Patient Total time spent is greater than 50% in coordination of care (as documented) at patient's floor/unit and/or counseling patient: Greater than 35 minutes Plan of Care Discussed with: patient Internal Medicine: Result - Labs CBC & Chem 7: 09/18/18 05:11 09/18/18 05:11 Labs: Short CBC 09/18/18 Range/Units 05:11 WBC 7.8 (4.3-11.1) K/mcL Hgb 14.9 (12.9-16.9) g/dL Hct 42.2 (37.5-50.1) % Plt Count 244 (140-400) K/mcL Neutrophils # 5.5 (1.6-8.9) K/mcL BMP 09/18/18 05:11 Sodium 138 Potassium 4.3 Chloride 108 H Carbon Dioxide 27 BUN 12 Creatinine 0.88 Glucose 147 H Calcium 8.8 Cardiac Enzymes 09/17/18 Range/Units 14:22 Troponin I 0.12 H* (< 0.04) ng/mL - ABG Interpretation ABG results: PT/INR, D-dimer PT 11.2 Seconds (9.4-12.1) 09/17/18 02:03 - Impressions Impressions Echocardiogram 09/17/18 06:00 Impressions: LVEF 55%. Basal sigmoid septum. Mild left ventricular diastolic dysfunction. Normal right ventricular structure and function. Mild-moderate mitral regurgitation. Trace tricuspid regurgitation. No evidence of pulmonary hypertension. Left Ventricular Wall Motion: Rest Echo Findings All wall segments showed normal motion. Findings: Study Quality * Technically adequate exam. ECG Findings * Normal sinus rhythm. Left Ventricle * LVEF 55%. * Basal sigmoid septum. * Mild left ventricular diastolic dysfunction. Right Ventricle * Normal right ventricular structure and function. Left Atrium * Normal left atrial size. Right Atrium * Normal right atrial size. Interatrial Septum * No evidence of PFO by color Doppler. Aortic Valve * Trileaflet aortic valve. * Normal aortic valve structure. * No aortic regurgitation. * No aortic stenosis. Mitral Valve * No mitral stenosis. * Moderately thickened mitral valve leaflets. * Mild-moderate mitral regurgitation. Tricuspid Valve * Trace tricuspid regurgitation. * No tricuspid stenosis. * Normal tricuspid valve structure. * No evidence of pulmonary hypertension. Pulmonic Valve * Normal pulmonic valve structure. * No pulmonic regurgitation. Aorta * Normally sized aortic root. Pericardium * The pericardium appears normal. IVC * Normal IVC dimensions and inspiratory collapse. Pulmonary Artery * Normal visualized portions of the main pulmonary artery. Consult Discharge Plan - Plan Referrals: Hernan Canseco MD [Primary Care Provider] - (2) Hypertension Qualifiers: Hypertension type: unspecified Qualified Code(s): I10 - Essential (primary) hypertension (3) Hyperlipidemia Qualifiers: Hyperlipidemia type: pure hypercholesterolemia Qualified Code(s): E78.00 - Pure hypercholesterolemia, unspecified; E78.0 - Pure hypercholesterolemia
[2018-09-18] MEDS: Aspirin 81 MG TAB.CHEW PO SCH (10:01)
--- NOTE | 2018-09-18 11:08 | Cardiothoracic Consult Note ---
Date of Encounter: 09/18/18 Time of Encounter: 10:58 Assessment and Plan (1) NSTEMI (non-ST elevated myocardial infarction) Current Visit: Yes Status: Acute The patient is a 63 year old hypertensive man with hypercholesterolemia with a remote cardiac history who was evaluated at [facility] on September 16, 2018 with complaints of exertional bilateral scapular pain radiating down his arms. The patient was evaluated at [facility] emergency department and found to have elevated troponin I levels consistent with a NSTEMI. He was admitted for further cardiac workup. A transthoracic echocardiogram revealed an LVEF 55% with mild left ventricular diastolic dysfunction and mild to moderate mitral regurgitation. Subsequent cardiac catheterization revealed severe 3 vessel CAD and an LVEF 60%. In particular, the patient has a 95% proximal LAD lesion, a 60-70% mid LCx lesion, 6070% ostial OM1 lesion, a 95% proximal RCA lesion, a 30% mid RCA lesion, and a 90-95% proximal RLPB lesion. He has been recommended for CABG. A concur with this recommendation. The STS risk calculator reveals an operative mortality risk 0.33%, renal failure risk 0.3%, permanent stroke risk 0.55%, deep sternal wound infection risk 0.1%, and reoperation risk 1.54%. The patient understands the procedure, benefits, alternatives, and risks, and gives his informed consent. The patient is tentatively scheduled for CABG on Thursday, September 20, 2018. The assessment and plan as outlined above was discussed with the patient and/or family members who expressed understanding and agreement. All questions were answered. - History of Present Illness Consult date: 09/17/18 Requesting physician: Zeke Hernandez Consult reason: CABG evaluation Chief complaint: NSTEMI History of present illness: Mr. Myers is a 63 year old hypertensive man with hypercholesterolemia with a remote cardiac history who was evaluated at [facility] on September 16, 2018 with complaints of exertional bilateral scapular pain radiating down his arms. The patient states that the symptoms initially occurred around [place] while he was participating in a Jazzercise class. He had sudden onset of bilateral scapular pain radiating down his arms and stopped his activity immediately. He denies any substernal chest pain, shortness of breath, diaphoresis, lightheadedness, nausea, or vomiting. He rested in the back of the class for several minutes and then resumed his activity without recurrent pain. He has had recurrent symptoms at least twice, though each episode has been less severe than the initial. He was evaluated by the EMS team after the most recent episode and told that he had an abnormal ECG. He was transported to [facility] for evaluation. During the evaluation he was noted to have elevated troponin I consistent with an acute NSTEMI. He also informed the evaluating physician that he had suffered a myocardial infarction 15 years ago. At that time he was transported to [facility] in [facility] and underwent cardiac catheterization. He was told that he had single-vessel disease and did not require any intervention. He was admitted for further cardiac workup after this most recent episode. The patient underwent a transthoracic echocardiogram was found to have an LVEF 55% with mild left ventricular diastolic dysfunction. Mild to moderate mitral regurgitation was noted. Subsequent cardiac catheterization revealed severe 3 vessel CAD and an LVEF 60%. In particular the patient has a 95% proximal LAD lesion, a 60-70% mid LCx lesion, a 60-70% proximal OM1 lesion, a 95% proximal RCA lesion, a 30% mid RCA lesion, an 80-90% proximal RPLB lesion. Patient was recommended for urgent CABG. Past Med Surg Social Fam HX - Past Medical History Medical history: coronary artery disease, hyperlipidemia, hypertension, myocardial infarction Psychiatric history: no psych history - Past Surgical History Surgical History: no surgical history Additional surgical history: CARDIAC CATH-NO STENTS - Social History Smoking Status: Never smoker Smokeless Tobacco Status: No Alcohol use: none Drug use: none Occupational status: employed Current living situation: Home - Independent Activity Level: Independent ambulation, Very active Recent Out of Country Travel Within the Last 8 Weeks: No Exposure or Possible Exposure to Illness During Travel: No Medications and Allergies Aspirin [Adult Aspirin] 81 mg PO DAILY 09/17/18 [History] Atorvastatin Calcium [Lipitor] 80 mg PO DAILY 09/17/18 [History] Cyanocobalamin (Vitamin B-12) [Vitamin B12] 1,000 mcg PO DAILY 09/17/18 [History] Metoprolol [Lopressor] 25 mg PO BID 09/17/18 [History] Allergy/AdvReac Type Severity Reaction Status Date / Time No Known Allergies Allergy Verified 09/17/18 10:32 All Systems Review: The remainder of the systems were reviewed and are negative Physical Examination Vital Signs, Last 4 Hours Temp Pulse Resp BP Pulse Ox 09/18/18 08:29 98.2 F 70 18 133/81 94 General: Conversant, No Apparent Distress HEENT: Atraumatic, Normocephaly, Trachea midline Neck: No JVD, Normal carotid pulses Cardiac: Reg Rate and Rhythm, Normal S1 and S2, No Murmur Lungs: Normal Breath Sounds, No Wheeze, Rales, Rhonchi Neuro: Alert and responsive, No focal deficits noted, Motor nerves intact, Sensory nerves intact Vascular: Normal capillary refill Abdomen: Soft, Non-tender Skin: No rashes noted on visualized skin Musculoskeletal: No Chest Wall Tenderness Extremities: No Clubbing, No Cyanosis, No Edema, Normal Pulses Results 09/18/18 05:11 09/18/18 05:11 Lab Results, Last 24 hours 09/17/18 09/18/18 09/18/18 14:22 05:11 05:11 WBC 7.8 Hgb 14.9 Hct 42.2 Plt Count 244 Sodium 138 Potassium 4.3 Chloride 108 H Carbon Dioxide 27 BUN 12 Creatinine 0.88 Glucose 147 H Calcium 8.8 Troponin I 0.12 H* - Imaging Chest Xray: image reviewed (Normal cardiac size. No active pulmonary disease.) Consult Discharge Plan - Plan Referrals: Hernan Canseco MD [Primary Care Provider] -
[2018-09-18] MEDS: Heparin 25,000 UNIT/500 ML D5W 25,000 UNIT/500 ML BAG IVC SCH (11:11)
--- NOTE | 2018-09-18 11:18 | Cardiology Progress Note ---
Date of Encounter: 09/18/18 Time of Encounter: 11:16 Assessment and Plan (1) NSTEMI (non-ST elevated myocardial infarction) Current Visit: Yes Status: Acute Troponin 0.14, 0.19. Pain in shoulder blades and radiating down both arms occurring with exertion over the past couple weeks, progressed to occurring at rest. TTE LVEF 55% with mild LVDD. Mild-moderate MR. LHC revealed severe 3 vessel CAD and an LVEF 60%. 95% proximal LAD lesion, 60- 70% mid LCx lesion, 60-70% proximal OM1 lesion, 95% proximal RCA lesion, a 30% mid RCA lesion, an 80-90% proximal RPLB lesion. CT surgery consulted and has been recommended for urgent CABG, tentatively planned for Saturday09/20/17. Pain free overnight. Right radial access site healing well. No bleeding, dede kee or ecchymosis noted. Continue heparin gtt, ASA, Statin, BB. Cardiology signing off. Reconsult PRN. Will coordinate outpt follow-up in 4-6 weeks. (2) CAD (coronary artery disease) Current Visit: Yes Status: Acute As above, CABG tentatively planned for 09/20/17. ASA, Statin, BB. Qualifiers: Coronary Disease-Associated Artery/Lesion type: [place] artery [place] vs. transplanted heart: [place] heart Associated angina: with unstable angina Qualified Code(s): I25.110 - Atherosclerotic heart disease of [place] coronary artery with unstable angina pectoris Discussion w patient/family: The assessment and plan as outlined above was discussed with the patient and/or family members who expressed understanding and agreement. All questions were answered. Thank you for involving us in the care of your patient. Please call with any questions. I will discuss all the above with Dr. Maddox and make changes as necessary. Subjective Principal diagnosis: NSTEMI Interval history: TTE LVEF 55% with mild LVDD. Mild to moderate MR. LHC yesterday revealed severe 3 vessel CAD and an LVEF 60%. 95% proximal LAD lesion, a 60-70% mid LCx lesion, a 60-70% proximal OM1 lesion, a 95% proximal RCA lesion, a 30% mid RCA lesion, an 80-90% proximal RPLB lesion. CT surgery consulted for CABG. Pt denies any pain between his shoulder blades overnight. No acute complaints. Objective Vital Signs, Last 4 Hours Temp Pulse Resp BP Pulse Ox 09/18/18 08:29 98.2 F 70 18 133/81 94 Vital Signs Temp Pulse Resp BP Pulse Ox 09/18/18 08:29 98.2 F 70 18 133/81 94 09/18/18 04:48 98.1 F 70 16 133/82 96 09/17/18 22:50 98 F 68 16 149/82 94 09/17/18 18:49 98.3 F 68 18 133/79 97 09/17/18 18:19 87 148/88 98 09/17/18 17:49 73 160/92 98 09/17/18 17:34 97.7 F 58 18 145/89 97 09/17/18 17:19 54 18 09/17/18 17:03 61 109/71 95 09/17/18 16:48 97.9 F 60 18 117/74 94 Intake and Output 09/17/18 09/18/18 09/18/18 23:59 07:59 15:59 Intake Total 1075 / 1075 Balance 1075 / 1075 Intake: IV Fluids 1075 / 1075 0.9 % Sodium Chloride 1,000 ML 1000 / 1000 @ 75 mls/hr IVC .[id number] PAMELA Rx #:[id number] Heparin 25,000 UNIT/500 ML D5W 75 / 75 25,000 unit In 500 ml @ 11.5 UNIT/KG/HR 20.051 mls/hr IVC . Q24H PAMELA Rx#:[id number] Other: Meal NPO Weight 88.8 kg Patient Weight 09/18/18 23:59 Weight 88.8 kg General: Conversant, No Apparent Distress HEENT: Atraumatic, Normocephaly, Mucus Membranes Moist Neck: No JVD, Normal carotid pulses Cardiac: Reg Rate and Rhythm, Normal S1 and S2, No Murmur Lungs: Normal Breath Sounds, No Wheeze, Rales, Rhonchi Neuro: Alert and responsive, No focal deficits noted Abdomen: Soft, Non-Tender Skin: Other (right radial access site healing well. No bleeding, hematoma or ecchymosis noted.) Musculoskeletal: No Chest Wall Tenderness Extremities: No Clubbing, No Cyanosis, No Edema, Normal Pulses Results 09/18/18 05:11 09/18/18 05:11 Lab Results 09/17/18 09/18/18 09/18/18 14:22 05:11 05:11 WBC 7.8 Hgb 14.9 Hct 42.2 Plt Count 244 Sodium 138 Potassium 4.3 Chloride 108 H Carbon Dioxide 27 BUN 12 Creatinine 0.88 Glucose 147 H Calcium 8.8 Troponin I 0.12 H* Short CBC 09/18/18 Range/Units 05:11 WBC 7.8 (4.3-11.1) K/mcL Hgb 14.9 (12.9-16.9) g/dL Hct 42.2 (37.5-50.1) % Plt Count 244 (140-400) K/mcL Neutrophils # 5.5 (1.6-8.9) K/mcL BMP 09/18/18 Range/Units 05:11 Sodium 138 (136-145) mEq/L Potassium 4.3 (3.5-5.1) mEq/L Chloride 108 H (98-107) mEq/L Carbon Dioxide 27 (23-29) mEq/L BUN 12 (8-23) mg/dL Creatinine 0.88 (0.70-1.30) mg/dL Glucose 147 H (70-105) mg/dL Calcium 8.8 (8.6-10.3) mg/dL Cardiac Enzymes 09/17/18 Range/Units 14:22 Troponin I 0.12 H* (< 0.04) ng/mL Impressions Echocardiogram 09/17/18 06:00 Impressions: LVEF 55%. Basal sigmoid septum. Mild left ventricular diastolic dysfunction. Normal right ventricular structure and function. Mild-moderate mitral regurgitation. Trace tricuspid regurgitation. No evidence of pulmonary hypertension. Left Ventricular Wall Motion: Rest Echo Findings All wall segments showed normal motion. Findings: Study Quality * Technically adequate exam. ECG Findings * Normal sinus rhythm. Left Ventricle * LVEF 55%. * Basal sigmoid septum. * Mild left ventricular diastolic dysfunction. Right Ventricle * Normal right ventricular structure and function. Left Atrium * Normal left atrial size. Right Atrium * Normal right atrial size. Interatrial Septum * No evidence of PFO by color Doppler. Aortic Valve * Trileaflet aortic valve. * Normal aortic valve structure. * No aortic regurgitation. * No aortic stenosis. Mitral Valve * No mitral stenosis. * Moderately thickened mitral valve leaflets. * Mild-moderate mitral regurgitation. Tricuspid Valve * Trace tricuspid regurgitation. * No tricuspid stenosis. * Normal tricuspid valve structure. * No evidence of pulmonary hypertension. Pulmonic Valve * Normal pulmonic valve structure. * No pulmonic regurgitation. Aorta * Normally sized aortic root. Pericardium * The pericardium appears normal. IVC * Normal IVC dimensions and inspiratory collapse. Pulmonary Artery * Normal visualized portions of the main pulmonary artery. Chest X-Ray 09/18/18 09:32 IMPRESSION: No new acute cardiopulmonary findings. D/ / Erica Tan MD / rEica Tan MD Interpreting Provider: Erica Tan MD Active Medications Aspirin (Aspirin) 81 mg PO DAILY PAMELA Stop: 03/20/19 09:01 Last Admin: 09/18/18 10:01 Dose: 81 mg Atorvastatin Calcium (Lipitor) 40 mg PO HS PAMELA Stop: 03/19/19 21:01 Last Admin: 09/17/18 22:34 Dose: 40 mg Chlorhexidine Gluconate (Chlorhexidine Rinse) 15 ml MM BID PAMELA Stop: 09/19/18 21:01 Heparin Sodium (Porcine) (Heparin) 4,000 unit IVP Q6HR PRN PRN Reason: SEE COMMENTS Stop: 03/19/19 01:35 Heparin Sodium (Porcine) (Heparin) 2,000 unit IVP Q6H PRN PRN Reason: SEE COMMENTS Stop: 03/19/19 01:35 Heparin Sodium/Dextrose (Heparin 25,000 Unit/500 Ml D5w) 25,000 unit in 500 mls @ 20.051 mls/hr IVC .Q24H PAMELA; Protocol Stop: 03/19/19 01:46 Last Titration: 09/17/18 16:17 Dose: 11.5 unit/kg/hr, 20.051 mls/hr Cefazolin Sodium (Ancef Syringe 2,000 Mg/20 Ml) 2,000 mg in 20 mls @ 200 mls/hr IVPB PREOP ONE Stop: 09/20/18 07:05 Metoprolol Tartrate (Lopressor) 25 mg PO BID PAMELA Stop: 03/19/19 09:01 Last Admin: 09/18/18 10:01 Dose: 25 mg Naloxone HCl (Narcan) 0.4 mg IVP Q2MIN PRN PRN Reason: SEE COMMENTS Stop: 03/19/19 03:06 Nitroglycerin (Nitroglycerin) 0.4 mg SL Q5MIN PRN PRN Reason: Chest Pain Stop: 03/19/19 03:06 Oxycodone HCl (Roxicodone) 5 mg PO Q4H PRN PRN Reason: SEVERE PAIN Stop: 03/19/19 03:31 - Imaging and Cardiology Echo: report reviewed Cardiac cath: report reviewed - EKG Interpretation EKG results cardiology: other (12 hr tele AVG HR 66, SR, no significant pauses or arrhythmias noted.) Consult Discharge Plan - Plan Referrals: Hernan Canseco MD [Primary Care Provider] -
[2018-09-18 12:43] LABS: Estimated Average Glucose 140 mg/dl; Hemoglobin A1C 6.5 %
[2018-09-19 00:43] LABS: Hematocrit 41.7 % (37.5-50.1); Hemoglobin 14.6 g/dL (12.9-16.9); Mean Corpuscular Hemoglobin 30.7 pg (28.0-33.3); Mean Corpuscular Volume 87.8 fL (83.0-100.0); Mean Platelet Volume 10.6 fL (9.4-12.4); Platelet Count 248 K/mcL (140-400); Red Blood Count 4.75 M/mcL (4.19-5.50)
[2018-09-19 00:59] LABS: BUN/Creatinine Ratio 14 (6-26); Blood Urea Nitrogen 12 mg/dL (8-23); Calcium 8.9 mg/dL (8.6-10.3); Carbon Dioxide 24 mEq/L (23-29); Chloride 107 mEq/L (98-107); Glucose 146 mg/dL (70-105); Osmolality,Calculated 286 (280-300); Potassium 3.8 mEq/L (3.5-5.1); Sodium 137 mEq/L (136-145); eGFR For Non-African Americans > 60 (> 60)
[2018-09-19] MEDS: Heparin 25,000 UNIT/500 ML D5W 25,000 UNIT/500 ML BAG IVC SCH ×2 (03:10→20:57)
[2018-09-19] MEDS: Chlorhexidine Rinse 15 ML MOUTHWASH MM SCH ×2 (09:23→20:08)
[2018-09-19] MEDS: Aspirin 81 MG TAB.CHEW PO SCH (09:24)
--- NOTE | 2018-09-19 10:08 | Anesthesia Evaluation PreOp ---
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 Other Medical History: Denies Any Significant HX Anesthesia History: Past Anesthesia (denies PSH) Alcohol Use: none Drug use: none Medications and Allergies Aspirin [Adult Aspirin] 81 mg PO DAILY 09/17/18 [History] Atorvastatin Calcium [Lipitor] 80 mg PO DAILY 09/17/18 [History] Cyanocobalamin (Vitamin B-12) [Vitamin B12] 1,000 mcg PO DAILY 09/17/18 [History] Metoprolol [Lopressor] 25 mg PO BID 09/17/18 [History] Allergy/AdvReac Type Severity Reaction Status Date / Time No Known Allergies Allergy Verified 09/17/18 10:32 - Meds/Allergy Pre-op Review Medications Reviewed: Yes Allergies Reviewed: Yes Beta Blockers on Current Med List: Yes (Lopressor) If Beta Blockers taken, Date/Time (Last Dose taken): 09-19-18 @ [address] [place] [address] Anesthesia Results - Labs 09/20/18 03:33 09/20/18 03:33 - Imaging EKG: report reviewed (IMPRESSION: No new acute cardiopulmonary findings.) Additional studies: echo: Impressions: LVEF 55%. Basal sigmoid septum. Mild left ventricular diastolic dysfunction. Normal right ventricular structure and function. Mild-moderate mitral regurgitation. Trace tricuspid regurgitation. No evidence of pulmonary hypertension cath: cardiac catheterization revealed severe 3 vessel CAD and an LVEF 60%. In particular, the patient has a 95% proximal LAD lesion, a 60-70% mid LCx lesion, 6070% ostial OM1 lesion, a 95% proximal RCA lesion, a 30% mid RCA lesion, and a 90-95% proximal RLPB lesion. He has been recommended for CABG. A concur with this recommendation. The STS risk calculator Anesthesia Exam Selected Entries 09/20/18 05:00 Pulse Rate 73 Respiratory Rate 18 Blood Pressure 141/95 O2 Sat by Pulse Oximetry 99 Oxygen Delivery Method Room Air Weight: 79 NPO (# of Hours): 8 - HEENT Pupil (Motor): EOMI Mallampati: II Teeth: Normal Oral Opening: Less than or equal to 3 - [employer] LOC: Oriented [employer] Motor: Normal RUE, Normal LUE, Normal RLE, Normal LLE, Normal Face [employer] Sensory: Normal: RUE, LUE, RLE, LLE, Face - Cardiac Rhythm: Regular Murmur: None - Pulmonary Breath Sounds: bilateral Clear Respiratory Effort: Symmetrical Anesthesia Assess/Plan ASA Score: 4 Level of consciousness: Cooperative, Oriented Anesthetic Plan: General Monitoring Plan: Standard Monitors, A-Line, PAC, JUSTA Recovery Plan: ICU (agrees to GA, lines, JUSTA and blood)
--- NOTE | 2018-09-19 12:05 | Internal Med Progress Note ---
Hospitalist Progress Note - Encounter Date of Encounter: 09/19/18 Time of Encounter: 12:03 - Subjective Interval History: Pt resting in the room with family. He is chest pain free at this time. He has no sob, syncope, or palpitation. - Exam Vitals: Temp Pulse Resp BP Pulse Ox 98.1 F 72 16 136/85 96 09/19/18 08:37 09/19/18 08:37 09/19/18 08:37 09/19/18 08:37 09/19/18 08:37 Exam: General: Alert and oriented 3 lying in bed in no acute distress Skin:Normal color, no rash, no lesions. HEENT:EOM, pupils equal, round and reactive. Cardiovascular:Normal S1 & S2, no rubs, murmurs or gallops. No JVD. Pulse regular. Lungs:Normal breath sounds, no wheezes or crackles. Abdomen:Soft, non-tender, no rigidity. Extremities:No deformity, no edema or tenderness, no joint swelling or clubbing. Neurological:Normal cognition and motor skills. Pulses:Carotid and radial pulses normal +2. Rest of the physical exam is non contributory - Assessment and Plan (1) NSTEMI (non-ST elevated myocardial infarction) Current Visit: Yes Status: Acute Assessment and Plan: 09/17/2018 63-year-old male with a past medical history significant for [place] presents with atypical chest pain described as pain radiating across the back shoulders initially aggravated with exertion, specifically exercise, and relieved with rest; now occurring at rest. Initial EKG was normal but was found to have an elevated troponin of 0.14. Low suspicion for aortic dissection given descri ption and no evidence of widened mediastinum on chest x-ray. Patient received loading dose of aspirin and was started on a heparin drip. No complaints of chest or back pain at this time. -Trend troponin -Telemetry -Echocardiogram -Cardiology consultation. 09/18/2018 reported occluded coronary arteries on [facility]. possible CABG discussed with pt and family by cardiology. continue Heparin gtt for now. continue asa and BB. ECHO 09/17 showed: LVEF 55%. Basal sigmoid septum. Mild left ventricular diastolic dysfunction. Normal right ventricular structure and function. Mild-moderate mitral regurgitation. Trace tricuspid regurgitation. No evidence of pulmonary hypertension. 09/19 Planned CABG on Saturday. Pt on heparin gtt. continue asa and BB. (2) Hypertension Current Visit: Yes Status: Acute Assessment and Plan: Blood pressure stable. We will monitor Continue with home antihypertensives. (3) Hyperlipidemia Current Visit: Yes Status: Acute Assessment and Plan: Continue patient's home statin (4) DVT prophylaxis Current Visit: Yes Status: Acute Assessment and Plan: Patient on heparin drip - Time Spent with Patient Total time spent is greater than 50% in coordination of care (as documented) at patient's floor/unit and/or counseling patient: Greater than 35 minutes Plan of Care Discussed with: patient Internal Medicine: Result - Labs CBC & Chem 7: 09/19/18 00:00 09/19/18 00:00 Labs: Short CBC 09/19/18 Range/Units 00:00 WBC 10.2 (4.3-11.1) K/mcL Hgb 14.6 (12.9-16.9) g/dL Hct 41.7 (37.5-50.1) % Plt Count 248 (140-400) K/mcL BMP 09/19/18 00:00 Sodium 137 Potassium 3.8 Chloride 107 Carbon Dioxide 24 BUN 12 Creatinine 0.88 Glucose 146 H Calcium 8.9 - ABG Interpretation ABG results: PT/INR, D-dimer PT 11.2 Seconds (9.4-12.1) 09/17/18 02:03 Consult Discharge Plan - Plan Referrals: Hernan Canseco MD [Primary Care Provider] - (Office request that the patient call and schedule appointment once discharged. ) (2) Hypertension Qualifiers: Hypertension type: unspecified Qualified Code(s): I10 - Essential (primary) hypertension (3) Hyperlipidemia Qualifiers: Hyperlipidemia type: pure hypercholesterolemia Qualified Code(s): E78.00 - Pure hypercholesterolemia, unspecified; E78.0 - Pure hypercholesterolemia
[2018-09-20 04:40] LABS: Hematocrit 46.1 % (37.5-50.1); Hemoglobin 15.8 g/dL (12.9-16.9); Mean Corpuscular HGB Conc 34.3 g/dL (31.6-35.5); Mean Corpuscular Hemoglobin 30.9 pg (28.0-33.3); Mean Platelet Volume 10.7 fL (9.4-12.4); Platelet Count 265 K/mcL (140-400); Red Blood Count 5.12 M/mcL (4.19-5.50)
[2018-09-20 04:58] LABS: BUN/Creatinine Ratio 12 (6-26); Blood Urea Nitrogen 13 mg/dL (8-23); Calcium 9.2 mg/dL (8.6-10.3); Carbon Dioxide 27 mEq/L (23-29); Chloride 105 mEq/L (98-107); Glucose 141 mg/dL (70-105); Osmolality,Calculated 290 (280-300); Potassium 4.4 mEq/L (3.5-5.1); Sodium 139 mEq/L (136-145); eGFR For Non-African Americans > 60 (> 60)
[2018-09-20] MEDS ORDERED: Nitroglycerin 25 MG/250 ML INFUS..BTL IVC ONE (06:59)
[2018-09-20] MEDS ORDERED: CeFAZolin Syr 2,000MG/20 ML 2,000 MG/20 ML SYRINGE IVPB ONE (07:00)
[2018-09-20] MEDS ORDERED: NiCARdipine 2.5 MG/10 ML Syringe IVPB ONE (07:00)
[2018-09-20] MEDS ORDERED: *HR* PHENYLEPHRINE 1,000 MCG/10 ML SYRINGE IVP ONE (07:04)
[2018-09-20] MEDS ORDERED: *HR* Rocuronium Bromide 50 MG/5 ML VIAL ONE (07:04)
[2018-09-20] MEDS ORDERED: Famotidine 20 MG/2 ML VIAL ONE (07:04)
[2018-09-20] MEDS ORDERED: *HR* Etomidate 20 MG/10 ML AMPUL IVP ONE (07:04)
[2018-09-20] MEDS ORDERED: *HR* Midazolam HCl 5 MG/5 ML VIAL IVP ONE (07:05)
[2018-09-20] MEDS ORDERED: Protamine Sulfate 250 MG/25 ML VIAL IVP ONE (07:05)
[2018-09-20] MEDS ORDERED: *HR* FentaNYL (PF) 1,000 MCG/20 ML VIAL ONE (07:05)
[2018-09-20] MEDS ORDERED: Tranexamic Acid 1,000 MG/10 ML VIAL ONE ×2 (07:05→09:50)
[2018-09-20] MEDS ORDERED: Heparin 1,000 UNITS/500 mL 500 ML ONE (07:18)
[2018-09-20] MEDS ORDERED: Dextrose 50 % in Water (Vial) 30 ML, Sodium Bicarbonate 20 MEQ, Lidocaine 1% 5 ML, Insu... TH ONE ×3 (08:00)
[2018-09-20] MEDS ORDERED: Heparin 15,000 UNIT in 0.9 % Sodium Chloride 500 ML IV ONE (08:00)
[2018-09-20] MEDS ORDERED: Norepinephrine 4 MG in D5% in Water 250 ML IVC PRN (08:00)
[2018-09-20] MEDS ORDERED: Insulin Human Regular 100 UNIT in 0.9 % Sodium Chloride 100 ML IV PRN (08:00)
[2018-09-20] MEDS ORDERED: Dextrose 50 % in Water (Vial) 30 ML, Sodium Bicarbonate 20 MEQ, Potassium Chloride 15 M... TH ONE (08:00)
--- NOTE | 2018-09-20 08:46 | Anesthesia Procedures ---
Date of Encounter: 09/20/18 Time of Encounter: 08:05 Procedures: Anesthesia - Arterial Line Consent obtained: written consent Time out performed: Yes Sedation: Versed (mg): 2 Sedation: Fentanyl (mcg): 100 Supplemental Oxygen via Nasal Cannula (L/min): 2 Local Anesthetic: Lidocaine 1% Amount of Anesthetic used (mls): 1 Size (Gauge): 20 Length (inches): 5 Technique Used: sterile prep, guide wire technique, direct puncture technique Post-Procedure: line taped into place, dry sterile dressing placed Patient tolerated procedure: well, no complications Complications: none Site: Radial L Comments: placed easily with one attempt - Central Line Placement Right IJ Consent obtained: written consent Time out performed: Yes Patient placed on monitor/pulse ox: Yes prep: mask, gown, gloves Central line prep: Chlorhexidine scrub Ultrasound used for placement: Yes Technique: Seldinger Lumen Inserted: Introducer Post procedure: sutured in place, good blood return, all ports aspirated, flushed, capped, sterile dressing applied Patient tolerated procedure: well, no complications Complications: none Comments: introducer placed easily with one attempt. [place] placed easily, no arrythmias, wedge approx 58cm
[2018-09-20] MEDS ORDERED: Esmolol 100 MG/10 ML VIAL IVP ONE (09:11)
[2018-09-20 09:21] LABS: ABG Base Excess -7 mEq/L (-2 to 3); ABG Chloride 116 mEq/L (98-107); ABG Glucose 136 mg/dL (60-95); ABG HCO3 19 mEq/L (21-27); ABG Ionized Calcium 0.69 mmol/L (1.15-1.35); ABG Oxygen Saturation 100 % (95-98); ABG PCO2 37 mmHg (35-45); ABG PH 7.32 pH Units (7.32-7.45); ABG PO2 179 mmHg (85-104); ABG TCO2 20 mEq/L (20-26)
[2018-09-20] MEDS ORDERED: Albumin Human 5% 50.0 GM/1,000 ML VIAL ONE (09:33)
[2018-09-20 09:50] LABS: ABG Base Excess 0 mEq/L (-2 to 3); ABG Chloride 97 mEq/L (98-107); ABG Glucose 244 mg/dL (60-95); ABG HCO3 25 mEq/L (21-27); ABG Ionized Calcium 1.02 mmol/L (1.15-1.35); ABG Oxygen Saturation 100 % (95-98); ABG PCO2 42 mmHg (35-45); ABG PH 7.39 pH Units (7.32-7.45); ABG PO2 277 mmHg (85-104); ABG TCO2 27 mEq/L (20-26)
[2018-09-20] MEDS ORDERED: Amiodarone Premix 360 MG/200 ML BAG IVC ONE ×2 (10:12→11:29)
[2018-09-20] MEDS ORDERED: *HR* Amiodarone 150 MG/3 ML VIAL IVPB ONE (10:12)
[2018-09-20 10:14] LABS: VBG Base Excess 1 mEq/L; VBG Chloride 98 mEq/L (98-107); VBG Glucose 251 mg/dl (65-95); VBG HCO3 26 mEq/L (21-27); VBG Ionized Calcium 1.03 mmol/L (1.15-1.35); VBG Oxygen Saturation 85 %; VBG PCO2 47 mmHg (41-51); VBG PH 7.36 pH Units (7.32-7.42); VBG PO2 52 mmHg (25-50); VBG Total CO2 28 mEq/L
[2018-09-20 10:33] LABS: ABG Base Excess -2 mEq/L (-2 to 3); ABG Chloride 97 mEq/L (98-107); ABG Glucose 202 mg/dL (60-95); ABG HCO3 24 mEq/L (21-27); ABG Ionized Calcium 1.08 mmol/L (1.15-1.35); ABG Oxygen Saturation 100 % (95-98); ABG PCO2 43 mmHg (35-45); ABG PH 7.35 pH Units (7.32-7.45); ABG PO2 387 mmHg (85-104); ABG TCO2 25 mEq/L (20-26)
[2018-09-20 10:59] LABS: ABG Base Excess -6 mEq/L (-2 to 3); ABG Chloride 108 mEq/L (98-107); ABG Glucose 158 mg/dL (60-95); ABG HCO3 19 mEq/L (21-27); ABG Oxygen Saturation 99 % (95-98); ABG PCO2 33 mmHg (35-45); ABG PH 7.37 pH Units (7.32-7.45); ABG PO2 130 mmHg (85-104); ABG TCO2 20 mEq/L (20-26)
--- NOTE | 2018-09-20 11:06 | Operative Note ---
Date of procedure: 09/20/18 Pre-op diagnosis: CAD Post-op diagnosis: same Procedure: 1. CABG4 (MCBRIDE to LAD, SVG to OM1, sequential SVG to PDA and RPLB). 2. LAD endarterectomy. 3. Endoscopic vein harvesting greater saphenous vein from right lower extremity. Implants: None. Complications: None. Anesthesia: GETA Surgeon: Flaca Dixon Was there an neurosurgical physician assistant present: Yes Calculus Tutor: Sumit Fuller Estimated blood loss (cc): 500 Specimen: None. Condition: stable Disposition: ICU Procedure in Detail: INDICATIONS FOR OPERATION: The patient is a 63 year old hypertensive man with hypercholesterolemia with a remote cardiac history who was evaluated at [facility] on September 16, 2018 with complaints of exertional bilateral scapular pain radiating down his arms. The patient states that the symptoms initially occurred around [place] while he was participating in a Jazzercise class. He had sudden onset of bilateral scapular pain radiating down his arms and stopped his activity immediately. He denies any substernal chest pain, shortness of breath, diaphoresis, lightheadedness, nausea, or vomiting. He rested in the back of the class for several minutes and then resumed his activity without recurrent pain. He has had recurrent symptoms at least twice, though each episode has been less severe than the initial. He was evaluated by the EMS team after the most recent episode and told that he had an abnormal ECG. He was transported to [facility] for evaluation. During the evaluation he was noted to have elevated troponin I consistent with an acute NSTEMI. He also informed the evaluating physician that he had suffered a myocardial infarction 15 years ago. At that time he was transported to [facility] in [facility] and underwent cardiac catheterization. He was told that he had single-vessel disease and did not require any intervention. He was admitted for further cardiac workup after this most recent episode. The patient underwent a transthoracic echocardiogram was found to have an LVEF 55% with mild left ventricular diastolic dysfunction. Mild to moderate mitral regurgitation was noted. Subsequent cardiac catheterization revealed severe 3 vessel CAD and an LVEF 60%. In particular the patient has a 95% proximal LAD lesion, a 60-70% mid LCx lesion, a 60-70% proximal OM1 lesion, a 95% proximal RCA lesion, a 30% mid RCA lesion, an 80-90% proximal RPLB lesion. He was recommended for urgent CABG. FINDINGS AT OPERATION: The aorta was slightly enlarged measuring approximately 4.5 cm in diameter. No calcifications were noted. The coronary arteries measure approximately 2-3 mm in diameter and had mild distal disease, except the LAD which required an endarterectomy in order to establish a patent distal lumen. The greater saphenous vein was harvested endoscopically from the right lower extremity from the knee to the groin and was of good quality. Total bypass time was 71 mi nutes, cross-clamp time 44 minutes, intentional hypothermia of 34.5 degrees centigrade. DESCRIPTION OF OPERATION: After obtaining informed operative consent from the patient he was taken to the operating room where a satisfactory general endotracheal anesthetic was induced. Appropriate monitoring lines were placed, the patient's chest, abdomen, and lower extremities were prepped and draped in a sterile fashion. The greater saphenous vein was harvested endoscopically from the right lower extremity from the knee to the groin. The vein was removed, distended, and fou nd to be of good quality. The subcutaneous tissue and skin edges were reapproximated running Vicryl sutures. Simultaneously, a standard median sternotomy incision was made and the sternum divided. The MCBRIDE was taken down from its bed and side branches divided between hemoclips. The sternum was and the pericardium opened and reflected laterally. The patient was prepared for cannulation by placing pursestring sutures the distal ascending aorta, mid-ascending aorta, and right atrial appendage. The patient was heparinized and when he is to is greater than 200 seconds, the distal ascending aorta was cannulated followed by placement of a dual stage venous cannula through the right atrial appendage and into the inferior vena cava. A stab-and antegrade metabolic and is placed in mid- ascending aorta. The patient was placed on bypass and the temperature allowed to drift to 34.5 degrees centigrade. The distal targets were identified and the aorta was crossclamped. The patient received 1200 mL of cold antegrade crystalloid cardioplegia through the aortic root and the heart eventually obtained diastolic arrest. The right PLB was opened with a Kenaitze blade and the vein was a nastomosed in an end-to-side fashion using running 7-0 Prolene suture. The anastomosis found to be hemostatic. The PDA was opened the Kenaitze blade and the vein was opened longitudinal fashion so the [id number] anastomosis could be completed using running 7-0 Prolene suture. The anastomosis found to be hemostatic and the patient received a final dose of cold antegrade crystalloid cardioplegia through the aortic root. The OM1 branch was opened be blade and the vein was anastomosed in an end-to-side fashion using running 7-0 Prolene suture. The anastomosis found to be hemostatic. The LAD was found to be diffusely diseased throughout its entire length and was opened distally. Upon opening the artery large amount of plaque was encountered the LAD required endarterectomy in order to establish a patent distal lumen. The endarterectomy specimen tapered nicely both proximally and distally and a 1 mm probe passed in both directions without encountering obstructions. The MCBRIDE was anastomosed in an end-to-side fashion to the LAD using running 7-0 Prolene suture. The anastomosis found to be hemostatic and the mammary pedicle was tacked to the epicardium using interrupted 5-0 silk suture. Rewarming was begun during this anastomosis. The aortic cross-clamp was released and the heart distended. The veins were measured and cut appropriate lengths. A partial occluding clamp was placed across the mid-ascending aorta and the antegrade cardioplegia cannula was removed. An additional aortotomy site was made 11 blade and both sites were enlarged with a 4 mm punch. The veins were anastomosed in an end-to-side fashion to the aorta using a running 5-0 Prolene suture. The vein grafts were occluded with bulldog clamps and de-aired with 25-gauge needle prior to removing the partial occluding clamp. The proximal and distal anastomoses were found to be hemostatic and the proximal anastomoses were marked with radiopaque loops. Two right ventricular temporary epicardial pacing lesion placed, and 3 chest suture placed, 2 in the mediastinum and one into the left pleural space. During rewarming the patient's heart rhythm degenerated to ventricular fibrillation and required a single 20 J direct current shock in order to regained normal sinus rhythm. An amiodarone drip was started. When the patient's systemic temperature reached 36 degrees centigrade, he was ventilated and received volume. He was weaned from bypass required no inotropic support. Protamine was administered and the aortic and venous cannulae were removed. The venous cannulation site was reinforced with a running 4-0 Prolene suture. The pericardium was loosely approximated in midline using interrupted 0 silk suture and the sternum was reapproximated sternal wires. The pectoralis major fascia, rectus abdominis fascia, subcutaneous tissue, and skin edges were reapproximated running Vicryl sutures. Sterile dressings were applied. The patient was transferred to the ICU in satisfactory postoperative condition. There were no intraoperative complications, and the instrument, needle, and sponge count were correct at end of operation. - Open Heart Detail MIHIR (Internal Mammary Artery) Usage: Yes Cardiopulmonary Bypass Time (mins): 71 Aortic Cross Clamp Time (mins): 44 Intentional Hypothermia Temperature (C.): 34.5
[2018-09-20] MEDS ORDERED: Calcium Chloride 1,000 MG in 0.9 % Sodium Chloride 100 ML IVPB PRN (11:29)
[2018-09-20] MEDS ORDERED: Acetaminophen 650 MG RECTAL SUPP RC PRN (11:29)
[2018-09-20] MEDS ORDERED: Naloxone 0.4 MG/ML INJ IVP PRN (11:29)
[2018-09-20] MEDS ORDERED: *HR* Dextrose 50 % in Water (Syg) 50 ML SYRINGE IVP PRN (11:29)
[2018-09-20] MEDS ORDERED: Acetaminophen 325 MG TABLET PO PRN (11:29)
[2018-09-20] MEDS ORDERED: Ondansetron 4 MG/2 ML VIAL IVP PRN (11:29)
[2018-09-20] MEDS ORDERED: Potassium Chloride 40 MEQ/200 ML BAG IVPB PRN (11:29)
[2018-09-20] MEDS ORDERED: Insulin Regular, Human 100 UNIT/ML IV PRN (11:29)
[2018-09-20] MEDS ORDERED: Norepinephrine 4 MG in D5% in Water 250 ML IVC SCH (11:30)
[2018-09-20 12:00] LABS: ABG Base Excess 1 mEq/L (-2 to 3); ABG HCO3 26 mEq/L (21-27); ABG Oxygen Saturation 99 % (95-98); ABG PCO2 40 mmHg (35-45); ABG PH 7.42 pH Units (7.32-7.45); ABG PO2 125 mmHg (85-104); ABG TCO2 27 mEq/L (20-26)
[2018-09-20 12:10] LABS: Basophils # 0.1 K/mcL (0.0-0.2); Basophils % 0.3 %; Eosinophils # 0.2 K/mcL (0.0-0.6); Eosinophils % 1.2 %; Hematocrit 36.6 % (37.5-50.1); Immature Granulocytes % 0.9 % (0-4); Lymphocytes # 2.1 K/mcL (0.6-4.6); Lymphocytes % 10.5 %; Mean Corpuscular HGB Conc 35.2 g/dL (31.6-35.5); Mean Platelet Volume 10.4 fL (9.4-12.4); Monocytes # 0.9 K/mcL (0.0-1.3); Monocytes % 4.7 %; Neutrophils # 16.2 K/mcL (1.6-8.9); Platelet Count 150 K/mcL (140-400); Red Blood Count 4.16 M/mcL (4.19-5.50); Red Cell Distribution Width 11.8 % (11.5-14.5); Segmented Neutrophils % 82.4 %
[2018-09-20 12:11] LABS: Hemoglobin 12.9 g/dL (12.9-16.9)
[2018-09-20 12:17] LABS: VBG HCO3 24 mEq/L (21-27); VBG PCO2 37 mmHg (41-51); VBG PH 7.41 pH Units (7.32-7.42); VBG PO2 175 mmHg (25-50)
[2018-09-20 12:25] LABS: Activated Partial Thrombo Time 36.8 Seconds (26.0-36.0)
[2018-09-20 12:30] LABS: INR 1.6; Prothrombin Time 17.6 Seconds (9.4-12.1)
[2018-09-20 12:42] LABS: BUN/Creatinine Ratio 12 (6-26); Blood Urea Nitrogen 12 mg/dL (8-23); Carbon Dioxide 22 mEq/L (23-29); Chloride 108 mEq/L (98-107); Glucose 126 mg/dL (70-105); Magnesium 2.7 mg/dL (1.6-2.6); Osmolality,Calculated 283 (280-300); Potassium 4.7 mEq/L (3.5-5.1); Sodium 136 mEq/L (136-145); eGFR For Non-African Americans > 60 (> 60)
[2018-09-20] MEDS: Metoclopramide 10 MG/2 ML VIAL IVP SCH ×3 (13:14→23:33)
[2018-09-20] MEDS: Pantoprazole 40 MG VIAL IVP SCH (13:14)
[2018-09-20] MEDS: Ketorolac 15 MG/ML VIAL IVP SCH ×3 (13:14→23:33)
[2018-09-20] MEDS: *HR* OxyCODONE/APAP 5/325 TABLET PO PRN ×3 (13:22→23:31)
[2018-09-20] MEDS: *HR* FentaNYL (PF) 100 MCG/2 ML VIAL IVP PRN ×3 (13:25→22:01)
[2018-09-20] MEDS: 0.9 % Sodium Chloride w KCl 20 MEQ/1,000 ML MLS IVC SCH (13:36)
[2018-09-20 15:15] LABS: ABG Base Excess 1 mEq/L (-2 to 3); ABG HCO3 27 mEq/L (21-27); ABG Oxygen Saturation 94 % (95-98); ABG PCO2 47 mmHg (35-45); ABG PH 7.36 pH Units (7.32-7.45); ABG PO2 74 mmHg (85-104); ABG TCO2 28 mEq/L (20-26); Blood Gas Respiration Rate 12; Blood Gas VT 600 cc
[2018-09-20 15:35] LABS: ABG Base Excess 0 mEq/L (-2 to 3); ABG HCO3 27 mEq/L (21-27); ABG Oxygen Saturation 93 % (95-98); ABG PCO2 50 mmHg (35-45); ABG PH 7.34 pH Units (7.32-7.45); ABG PO2 74 mmHg (85-104); ABG TCO2 28 mEq/L (20-26)
[2018-09-20] MEDS: niCARdipine 40 MG/200 ML MLS IVC SCH ×2 (15:39→19:22)
[2018-09-20] MEDS: Insulin Human Regular 100 UNIT in 0.9 % Sodium Chloride 100 ML IVC SCH ×2 (15:39→20:10)
[2018-09-20] MEDS: Nitroglycerin 25 MG/250 ML INFUS..BTL IVC SCH ×2 (15:40→22:06)
[2018-09-20] MEDS: Amiodarone Premix 360 MG/200 ML BAG IVC SCH (16:01)
[2018-09-20] MEDS: Chlorhexidine Rinse 15 ML MOUTHWASH MM SCH (22:02)
[2018-09-21] MEDS: Amiodarone Premix 360 MG/200 ML BAG IVC SCH (03:11)
[2018-09-21] MEDS: niCARdipine 40 MG/200 ML MLS IVC SCH (03:11)
[2018-09-21 03:28] LABS: Basophils % 0.2 %; Eosinophils % 0.2 %; Hemoglobin 12.4 g/dL (12.9-16.9); Immature Granulocytes % 0.4 % (0-4); Lymphocytes # 0.6 K/mcL (0.6-4.6); Lymphocytes % 4.6 %; Mean Corpuscular HGB Conc 34.4 g/dL (31.6-35.5); Mean Corpuscular Hemoglobin 30.5 pg (28.0-33.3); Mean Corpuscular Volume 88.7 fL (83.0-100.0); Mean Platelet Volume 10.5 fL (9.4-12.4); Monocytes % 7.7 %; Neutrophils # 11.1 K/mcL (1.6-8.9); Platelet Count 158 K/mcL (140-400); Red Blood Count 4.06 M/mcL (4.19-5.50); Red Cell Distribution Width 12.2 % (11.5-14.5); Segmented Neutrophils % 86.9 %
[2018-09-21 03:38] LABS: INR 1.3; Prothrombin Time 14.6 Seconds (9.4-12.1)
[2018-09-21 03:40] LABS: Activated Partial Thrombo Time 29.5 Seconds (26.0-36.0)
[2018-09-21 03:42] LABS: BUN/Creatinine Ratio 12 (6-26); Blood Urea Nitrogen 12 mg/dL (8-23); Calcium 8.5 mg/dL (8.6-10.3); Carbon Dioxide 23 mEq/L (23-29); Chloride 108 mEq/L (98-107); Glucose 129 mg/dL (70-105); Magnesium 2.2 mg/dL (1.6-2.6); Osmolality,Calculated 287 (280-300); Potassium 4.3 mEq/L (3.5-5.1); Sodium 138 mEq/L (136-145); eGFR For Non-African Americans > 60 (> 60)
[2018-09-21] MEDS: Metoclopramide 10 MG/2 ML VIAL IVP SCH ×4 (06:21→23:54)
[2018-09-21] MEDS: Ketorolac 15 MG/ML VIAL IVP SCH ×4 (06:41→23:54)
[2018-09-21] MEDS: Nitroglycerin 25 MG/250 ML INFUS..BTL IVC SCH (07:32)
[2018-09-21] MEDS: Pantoprazole 40 MG VIAL IVP SCH (07:37)
[2018-09-21] MEDS: Chlorhexidine Rinse 15 ML MOUTHWASH MM SCH ×2 (07:37→20:27)
[2018-09-21] MEDS: 0.9 % Sodium Chloride w KCl 20 MEQ/1,000 ML MLS IVC SCH (07:38)
[2018-09-21] MEDS: Insulin Human Regular 100 UNIT in 0.9 % Sodium Chloride 100 ML IVC SCH (07:46)
[2018-09-21] MEDS ORDERED: Aspirin Enteric Coated 81 MG Tablet PO SCH (09:00)
[2018-09-21] MEDS ORDERED: Furosemide 20 MG/2 ML VIAL IVP SCH (09:00)
--- NOTE | 2018-09-21 10:06 | Cardiothoracic Progress Note ---
Date of Encounter: 09/21/18 Time of Encounter: 10:04 - Assessment and plan (1) NSTEMI (non-ST elevated myocardial infarction) Current Visit: Yes Status: Acute The patient remained hemodynamically stable overnight. He is currently extubated and breathing comfortably. He has been able to sit in a chair without difficulty. The arterial line, Handy catheter, and [place] catheter will be removed. He will be transferred to the stepdown unit when a bed is available. The assessment and plan as outlined above was discussed with the patient and/or family members who expressed understanding and agreement. All questions were answered. - Subjective Procedure(s) Performed: POD#1 S/P CABG4, LAD endarterectomy Interval history: The patient remained hemodynamically stable overnight. He is extubated and breathing comfortably. He has no complaints. Vital Signs, Last 4 Hours Temp Pulse Resp BP Pulse Ox 09/21/18 09:00 65 16 103/63 97 09/21/18 08:00 86 18 103/59 95 09/21/18 07:30 90 09/21/18 07:24 16 103/63 94 09/21/18 07:00 98.2 F 82 16 110/59 95 Oxgyen Flow Rate Oxygen Flow Rate (LPM) 2 Clinical Data, last 8 Hours Output, Chest Tube Drainage 80 Amount [Mediastinal #2] Output, Chest Tube Drainage 10 Amount [Mediastinal #2] Output, Chest Tube Drainage 0 Amount [Mediastinal #2] Output, Chest Tube Drainage 10 Amount [Mediastinal #2] Output, Chest Tube Drainage 80 Amount [Mediastinal #1] Output, Chest Tube Drainage 20 Amount [Mediastinal #1] Output, Chest Tube Drainage 20 Amount [Mediastinal #1] Output, Chest Tube Drainage 20 Amount [Mediastinal #1] Weight 09/19/18 09/20/18 09/21/18 23:59 23:59 23:59 Weight 79.2 kg 79.2 kg - Physical Examination General: Conversant, No Apparent Distress Neck: No JVD, Normal carotid pulses Cardiac: Reg Rate and Rhythm, Normal S1 and S2, No Murmur Incision: No signs of infection, Dry/intact dressing Sternum: Stable Chest tubes: Minimal drainage, Other Pacing Wires: In place Lungs: Normal Breath Sounds, No Wheeze, Rales, Rhonchi Neuro: Alert and responsive, No focal deficits noted Vascular: Normal capillary refill Extremities: No Clubbing, No Cyanosis, No Edema, Normal Pulses - Labs 09/21/18 03:06 09/21/18 03:06 Lab Results, Last 24 hours 09/20/18 09/20/18 09/20/18 12:04 12:04 12:04 WBC 19.7 H D Hgb 12.9 D Hct 36.6 L Plt Count 150 INR 1.6 D APTT 36.8 H Sodium 136 Potassium 4.7 Chloride 108 H Carbon Dioxide 22 L BUN 12 Creatinine 1.02 Glucose 126 H Calcium 9.0 Magnesium 2.7 H 09/21/18 09/21/18 09/21/18 03:06 03:06 03:06 WBC 12.8 H Hgb 12.4 L Hct 36.0 L Plt Count 158 INR 1.3 APTT 29.5 Sodium 138 Potassium 4.3 Chloride 108 H Carbon Dioxide 23 BUN 12 Creatinine 0.99 Glucose 129 H Calcium 8.5 L Magnesium 2.2 - Imaging Chest Xray: image reviewed (No pneumothorax. Minimal atelectasis/infiltrates.) - VTE Documentation of Mechanical Device: Graduated compression elastic hosiery Consult Discharge Plan - Plan Referrals: Hernan Canseco MD [Primary Care Provider] - (Office request that the patient call and schedule appointment once discharged. )
[2018-09-21] MEDS: *HR* OxyCODONE/APAP 5/325 TABLET PO PRN ×3 (10:35→20:28)
[2018-09-21] MEDS ORDERED: Dextrose Gel 15 GM/37.5 ML TUBE PO PRN ×2 (10:42)
[2018-09-21] MEDS ORDERED: *HR* FentaNYL (PF) 100 MCG/2 ML VIAL IVP PRN (10:42)
[2018-09-21] MEDS ORDERED: Insulin Human Regular 100 UNIT in 0.9 % Sodium Chloride 100 ML IVC SCH (10:42)
[2018-09-21] MEDS ORDERED: Insulin Regular, Human 100 UNIT/ML IV PRN (10:42)
[2018-09-21] MEDS ORDERED: D5% in Water 1,000 ML IVC PRN (10:42)
[2018-09-21] MEDS ORDERED: Ondansetron 4 MG/2 ML VIAL IVP PRN (10:42)
[2018-09-21] MEDS ORDERED: Naloxone 0.4 MG/ML INJ IVP PRN (10:42)
[2018-09-21] MEDS ORDERED: Acetaminophen 325 MG TABLET PO PRN (10:42)
[2018-09-21] MEDS ORDERED: *HR* Dextrose 50 % in Water (Syg) 50 ML SYRINGE IVP PRN (10:42)
[2018-09-21] MEDS: Aspirin 81 MG TAB.CHEW PO SCH (10:54)
[2018-09-21] MEDS: *HR* Heparin 5,000 UNIT/ML VIAL SQ SCH ×2 (13:02→17:16)
[2018-09-21] MEDS: Insulin LISPRO 300 UNITS/3 ML VIAL SQ SCH ×3 (13:03→20:41)
[2018-09-21] MEDS: Furosemide 20 MG/2 ML VIAL IVP SCH (20:27)
[2018-09-22] MEDS: *HR* OxyCODONE/APAP 5/325 TABLET PO PRN ×3 (04:09→20:26)
[2018-09-22] MEDS: *HR* Heparin 5,000 UNIT/ML VIAL SQ SCH ×2 (06:04→16:17)
[2018-09-22] MEDS: Ketorolac 15 MG/ML VIAL IVP SCH ×4 (06:04→23:07)
[2018-09-22] MEDS: Metoclopramide 10 MG/2 ML VIAL IVP SCH ×4 (06:04→23:07)
[2018-09-22] MEDS: Chlorhexidine Rinse 15 ML MOUTHWASH MM SCH ×2 (07:22→20:26)
[2018-09-22] MEDS: Furosemide 20 MG/2 ML VIAL IVP SCH ×2 (07:23→20:26)
[2018-09-22] MEDS: Aspirin Enteric Coated 81 MG Tablet PO SCH (07:24)
[2018-09-22] MEDS: Insulin LISPRO 300 UNITS/3 ML VIAL SQ SCH ×4 (07:50→20:27)
[2018-09-22] MEDS ORDERED: Pantoprazole 40 MG VIAL IVP SCH (09:00)
--- NOTE | 2018-09-22 09:43 | Cardiothoracic Progress Note ---
Date of Encounter: 09/22/18 Time of Encounter: 09:42 - Assessment and plan (1) CAD (coronary artery disease) Current Visit: Yes Status: Acute The assessment and plan as outlined above was discussed with the patient and/or family members who expressed understanding and agreement. All questions were answered. The patient's chest tubes were removed. We will check a stat portable chest x- ray. He has transfer orders and is awaiting a bed. Qualifiers: Coronary Disease-Associated Artery/Lesion type: [place] artery [place] vs. transplanted heart: [place] heart Associated angina: with unstable angina Qualified Code(s): I25.110 - Atherosclerotic heart disease of [place] coronary artery with unstable angina pectoris - Subjective Interval history: The patient complains of mild to moderate postoperative pain. Vital Signs, Last 4 Hours Temp Pulse Resp BP Pulse Ox 09/22/18 08:00 84 09/22/18 07:40 98.2 F 09/22/18 07:00 85 107/67 91 09/22/18 06:00 84 18 106/65 91 Oxgyen Flow Rate Oxygen Flow Rate (LPM) 2 Clinical Data, last 8 Hours Output, Chest Tube Drainage 0 Amount [Mediastinal #2] Output, Chest Tube Drainage 0 Amount [Mediastinal #1] Output, Urine Amount 275 Output, Urine Amount 250 Weight 09/20/18 09/21/18 09/22/18 23:59 23:59 23:59 Weight 79.2 kg 84.7 kg Lungs are clear to percussion and auscultation. Heart is in a normal sinus rhythm. All incisions are healing well without signs of infection and the sternum is stable. Chest tube drainage is minimal and there is no air leak. - Labs 09/21/18 03:06 09/21/18 03:06 - VTE Documentation of Mechanical Device: Graduated compression elastic hosiery Consult Discharge Plan - Plan Referrals: Hernan Canseco MD [Primary Care Provider] - (Office request that the patient call and schedule appointment once discharged. )
[2018-09-22 10:24] LABS: ABG Base Excess 0 mEq/L (-2 to 3); ABG Chloride 107 mEq/L (98-107); ABG Glucose 130 mg/dL (60-95); ABG HCO3 26 mEq/L (21-27); ABG Oxygen Saturation 95 % (95-98); ABG PCO2 47 mmHg (35-45); ABG PH 7.35 pH Units (7.32-7.45); ABG PO2 82 mmHg (85-104); ABG TCO2 27 mEq/L (20-26)
--- NOTE | 2018-09-22 14:48 | Electrocardiograph Report ---
[place] [id number] Test Date: 2018-09-20 Pat Name: Romaine Myers Department: 109 Room: [facility] Gender: M Asphalt Roller Operator: : [id number] Requested By: Anupam Dixon Order Number: [id number] Reading MD: Jerrod Hartman Measurements Intervals Vance Rate: 69 P: 60 CO: 151 QRS: 8 QRSD: 96 T: 49 QT: 404 QTc: 423 Interpretive Statements SINUS RHYTHM NONSPECIFIC ST & T-WAVE ABNORMALITY Electronically Signed On 09-22-2018 14:46:52 EST by Jerrod Hartman
[2018-09-23 01:10] LABS: Basophils # 0.1 K/mcL (0.0-0.2); Basophils % 0.5 %; Eosinophils # 0.3 K/mcL (0.0-0.6); Eosinophils % 2.7 %; Hematocrit 32.3 % (37.5-50.1); Hemoglobin 11.5 g/dL (12.9-16.9); Immature Granulocytes % 1.1 % (0-4); Lymphocytes % 17.6 %; Mean Corpuscular HGB Conc 35.6 g/dL (31.6-35.5); Mean Corpuscular Hemoglobin 31.3 pg (28.0-33.3); Mean Corpuscular Volume 87.8 fL (83.0-100.0); Monocytes # 1.3 K/mcL (0.0-1.3); Monocytes % 11.1 %; Neutrophils # 7.7 K/mcL (1.6-8.9); Platelet Count 165 K/mcL (140-400); Red Blood Count 3.68 M/mcL (4.19-5.50)
[2018-09-23 01:29] LABS: BUN/Creatinine Ratio 18 (6-26); Blood Urea Nitrogen 18 mg/dL (8-23); Calcium 8.4 mg/dL (8.6-10.3); Carbon Dioxide 25 mEq/L (23-29); Chloride 105 mEq/L (98-107); Glucose 147 mg/dL (70-105); Osmolality,Calculated 289 (280-300); Potassium 4.2 mEq/L (3.5-5.1); Sodium 137 mEq/L (136-145); eGFR For Non-African Americans > 60 (> 60)
[2018-09-23] MEDS: Metoclopramide 10 MG/2 ML VIAL IVP SCH ×2 (05:35→12:28)
[2018-09-23] MEDS: Ketorolac 15 MG/ML VIAL IVP SCH ×4 (05:35→22:51)
[2018-09-23] MEDS: *HR* Heparin 5,000 UNIT/ML VIAL SQ SCH ×2 (05:35→17:56)
--- NOTE | 2018-09-23 07:37 | Cardiothoracic Progress Note ---
Date of Encounter: 09/23/18 Time of Encounter: 07:35 - Assessment and plan (1) CAD (coronary artery disease) Current Visit: Yes Status: Acute We will plan to discharge the patient tomorrow. Qualifiers: Coronary Disease-Associated Artery/Lesion type: [place] artery [place] vs. transplanted heart: [place] heart Associated angina: with unstable angina Qualified Code(s): I25.110 - Atherosclerotic heart disease of [place] coronary artery with unstable angina pectoris - Subjective Interval history: The patient is tolerating his diet and beginning to ambulate. Vital Signs, Last 4 Hours Temp Pulse Resp BP Pulse Ox 09/23/18 06:00 81 09/23/18 05:00 87 09/23/18 04:00 98.2 F 96 16 114/71 97 Oxgyen Flow Rate Oxygen Flow Rate (LPM) 2 Clinical Data, last 8 Hours Output, Urine Amount 250 Output, Urine Amount 800 Weight 09/21/18 09/22/18 09/23/18 23:59 23:59 23:59 Weight 84.7 kg 84.1 kg Lungs are clear to percussion and auscultation. Heart is in a normal sinus rhythm. All incisions are healing well without signs of infection and the sternum is stable. - Labs 09/23/18 01:00 09/23/18 01:00 Lab Results, Last 24 hours 09/23/18 09/23/18 01:00 01:00 WBC 11.5 H Hgb 11.5 L Hct 32.3 L Plt Count 165 Sodium 137 Potassium 4.2 Chloride 105 Carbon Dioxide 25 BUN 18 Creatinine 0.98 Glucose 147 H Calcium 8.4 L - VTE Documentation of Mechanical Device: Graduated compression elastic hosiery Consult Discharge Plan - Plan Referrals: Hernan Canseco MD [Primary Care Provider] - (Office request that the patient call and schedule appointment once discharged. )
[2018-09-23] MEDS: Aspirin Enteric Coated 81 MG Tablet PO SCH (07:53)
[2018-09-23] MEDS: Insulin LISPRO 300 UNITS/3 ML VIAL SQ SCH ×3 (07:53→16:42)
[2018-09-23] MEDS: Chlorhexidine Rinse 15 ML MOUTHWASH MM SCH ×2 (07:53→19:54)
[2018-09-23] MEDS: Furosemide 20 MG/2 ML VIAL IVP SCH ×2 (07:54→19:54)
[2018-09-23 09:17] LABS: Estimated Average Glucose 143 mg/dl; Hemoglobin A1C 6.6 %
[2018-09-23] MEDS ORDERED: Insulin LISPRO 300 UNITS/3 ML VIAL SQ SCH (21:00)
[2018-09-24] MEDS: Ketorolac 15 MG/ML VIAL IVP SCH (05:24)
[2018-09-24] MEDS: *HR* Heparin 5,000 UNIT/ML VIAL SQ SCH (05:24)
[2018-09-24] MEDS ORDERED: Tranexamic Acid 1,000 MG/10 ML VIAL IVPB ONE (08:16)
[2018-09-24] MEDS ORDERED: *HR* Phenylephrine 10 MG/ML VIAL IVC ONE (08:16)
[2018-09-24] MEDS ORDERED: Lidocaine 2% Syringe 100 MG/5 ML IV ONE (08:16)
[2018-09-24] MEDS ORDERED: *HR* Heparin 10,000 UNIT/10 ML VIAL IV ONE (08:16)
[2018-09-24] MEDS ORDERED: *HR* Magnesium Sulfate 2 GM/50 ML PIGGYBACK IVPB ONE (08:16)
[2018-09-24] MEDS ORDERED: Mannitol 25% vial 12.5 GM/50 ML VIAL IVP ONE (08:16)
[2018-09-24] MEDS ORDERED: Heparin 1,000 UNITS/500 mL IV.SOLN IVC ONE (08:16)
[2018-09-24] MEDS ORDERED: Albumin Human 25% 25 GM/100 ML IV.SOLN IV ONE (08:16)
[2018-09-24] MEDS: Insulin LISPRO 300 UNITS/3 ML VIAL SQ SCH (08:30)
[2018-09-24] MEDS: Chlorhexidine Rinse 15 ML MOUTHWASH MM SCH (08:30)
[2018-09-24] MEDS: Aspirin Enteric Coated 81 MG Tablet PO SCH (08:30)
--- NOTE | 2018-09-24 09:59 | Discharge Summary ---
Orders not resulted at time of discharge: Pending orders 09/17/18 08:55 CL Cardiac Catheterization [CL] Routine 09/18/18 07:00 ECG 12 lead ECG [ECG] Routine 09/18/18 09:52 Red Blood Cells [BBK] Routine Type and Screen [BBK] Routine Date of Encounter: 09/24/18 Time of Encounter: 09:54 - Discharge Diagnosis (1) CAD (coronary artery disease) Priority: Primary Status: Acute Qualifiers: Coronary Disease-Associated Artery/Lesion type: [place] artery [place] vs. transplanted heart: [place] heart Associated angina: with unstable angina Qualified Code(s): I25.110 - Atherosclerotic heart disease of [place] coronary artery with unstable angina pectoris - Hospital Course Hospital course: Mr. Myers is a 63 year old male The patient is a 63-year-old gentleman with a history of hypertension. He presented with a positive troponin and a myocardial infarction. Cardiac catheterization revealed severe coronary artery disease and he was referred for surgery. On 09/20/2018, Dr. Dixon took the patient to the operating room for coronary artery bypass grafting 4, utilizing the left internal mammary artery and a LAD endarterectomy. On September 21 transfer orders were written. On September 22 the chest tubes were removed. Chest x-ray revealed no pneumothorax. The patient otherwise did well and was discharged on September 24. At that time, he was afebrile. Lungs were clear to percussion and auscultation. Heart was in a normal sinus rhythm. All incisions were healing well without signs of infection and the sternum was stable. Discharge medications are on the med rec and include narcotics for pain. I did check the [place] automated Rx reporting system. He was postoperative and was given a one-week supply. Appropriate precautions were given. He was to return to his previous a regular diet. He was to avoid heavy lifting for a total of 3 months after surgery, but to walk as much as possible. He was to avoid driving for 1 month. He was to follow up and see Dr. Dixon in 4 weeks as directed. 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 He was to call sooner for any difficulties. - Time Spent with Patient Total time spent providing and/or coordinating discharge services: - Discharge Medications Prescriptions: OxyCODONE/APAP 5/325 [Percocet 5/325 MG] 1 each PO Q4HR PRN 7 Days #20 tablet PRN Reason: Severe Pain Atorvastatin Calcium [Lipitor] 80 mg PO DAILY #30 tablet Metoprolol [Lopressor] 25 mg PO BID #60 tablet Home Medications: Aspirin [Adult Aspirin] 81 mg PO DAILY 09/17/18 [History] Cyanocobalamin (Vitamin B-12) [Vitamin B12] 1,000 mcg PO DAILY 09/17/18 [History] Atorvastatin Calcium [Lipitor] 80 mg PO DAILY #30 tablet 09/24/18 [Rx] Metoprolol [Lopressor] 25 mg PO BID #60 tablet 09/24/18 [Rx] OxyCODONE/APAP 5/325 [Percocet 5/325 MG] 1 each PO Q4HR PRN 7 Days #20 tablet 09/24/18 [Rx] Allergies/Adverse Reactions: Allergy/AdvReac Type Severity Reaction Status Date / Time No Known Allergies Allergy Verified 09/17/18 10:32 Date of admission: 09/17/18 03:05 Primary care physician: Hernan Canseco MD Consults: 09/17/18 03:05 Consult to Cardiology [CONS] Routine Comment: Consulting Provider: [facility] [place] Reason for Consult: NSTEMI Call Completed: No 09/18/18 09:14 Consult to Cardiothoracic Surgery [CONS] Routine Consulting Provider: [facility] [place] Reason for Consult: open heart Call Completed: Yes Procedure(s) Performed: 09/20/2018. Coronary artery bypass grafting 4, utilizing the left internal mammary artery and a LAD endarterectomy. Discharging clinician: Juanpablo Masters Anticipated date of discharge: 09/24/18 Physical Examination Vital Signs, Last 4 Hours Temp Pulse Resp BP Pulse Ox 09/24/18 08:41 98.6 F 09/24/18 08:00 82 20 125/74 09/24/18 07:26 14 100 09/24/18 06:00 84 - Patient Status Disposition: Home, Self-Care Condition: Good Functional capacity at discharge: independent ambulation Overall status at discharge: patient is progressing back to baseline - Discharge Instructions Instructions: Coronary Artery Bypass Graft (DC), Heart Healthy Diet (DC), Sternal Precautions (GEN) Follow Up With: Hernan Canseco MD [Primary Care Provider] - (Office request that the patient call and schedule appointment once discharged. ) Open Heart Registry Aspirin Cont/Prescribed at DC: Yes Beta Kathya Cont/Prescribed at DC: Yes Statin Cont/Prescribed at DC: Yes TANVI/ARB Cont/Prescribed at DC: Not indicated - VTE Documentation of Mechanical Device: Graduated compression elastic hosiery
[2018-09-24 11:13] VITALS: BP 126/82
== END 2018-09-24 12:25 | disposition home or self-care (01) | DRG 233 ==
LOC: 3BNU 00:04 → EMEROOARM 00:04 → SUATTDRO 03:05 → 3BNU 03:10 → ICNU 09-19 19:47
PROVIDERS: ADMIT Internal Medicine; ATTEND Internal Medicine